=== PATIENT | male | born 1960 | race Caucasian/White ===

== ENCOUNTER 2023-04-27 06:32 | Emergency (ER) | payer OTHER, SELFPAY ==
[2023-04-27 06:39] VITALS: BP 143/104; PULSE 79; RESP 18; TEMP 36.6; O2SAT 99; BMI 29.3
--- NOTE | 2023-04-27 06:58 | ED.GENADULT ---
HPI - General Adult General Chief complaint: Headache/Migraine Stated complaint: cluster headache Time Seen by Provider: 04/27/23 06:33 History of Present Illness HPI narrative: cluster headache, third tonight in front forehead. no meds. last one 6 yr ago. this one started at 0530 . 62-year-old man presenting to the emergency department concern of headache. Has had for exacerbations of what is known to be cluster headache in the last 24 hours. This is much worse than usual. Has been sometime since he had these cluster headaches. Had been given initially on diagnosis nasal Imitrex but these did not seem to help. He notes how he would subsequently go for walks in the cool air in realized that this was helpful and then was prescribed oxygen. He is now out of this oxygen however. This is the only therapy he is particularly interested knowing that it works. He is only been to the emergency department only once before. Not had any fever. There is no trauma. No photophobia but notes that his right eye probably looks abnormal and is typical area for his cluster headache to be centered around. Is also feeling some pain into his upper dentition on that right side but notes that outside of these headaches he does not have any dental problems. Perhaps a little unusual this time has right-sided nose congestion. Related Data Home Medications Medication Instructions Recorded Confirmed aspirin 81 mg tablet,delayed 81 mg PO DAILY 04/27/23 04/27/23 release (Adult Aspirin Regimen) calcium carbonate-vitamin D2 PO 04/27/23 famotidine 20 mg tablet 20 mg PO DAILY 04/27/23 04/27/23 rosuvastatin 10 mg tablet 10 mg PO QPM 04/27/23 04/27/23 Allergies Allergy/AdvReac Type Severity Reaction Status Date / Time celecoxib [From Celebrex] AdvReac Verified 04/27/23 06:42 Penicillins AdvReac Verified 04/27/23 06:42 Review of Systems Status of ROS: Reports: 6 or more systems reviewed and unremarkable except as noted in History and below Exam Narrative: Exam Narrative: Looks clearly uncomfortable. Right eye is full. Is watering. Small lacrimation from nose as well. Right eye is closed. He is not demonstrating photophobia. Pupils are equal and appropriately reactive. Skin is warm and dry without rashes or blisters. Oropharynx is unremarkable with dentition in good repair. Neck without lymphadenopathy. Cranial nerves 2-12 look to be intact. Const: Vital Signs, click to edit/add: Vital Signs - 24 hr 04/27/23 06:39 04/27/23 07:06 04/27/23 08:13 Temperature 97.9 F Pulse Rate [Pulse Oximeter] 79 Respiratory Rate 18 Blood Pressure [Ri ght Upper Arm] 143/104 H Pulse Oximetry 99 100 Oxygen Delivery Me thod Room Air Nasal Cannula Room Air Oxygen Flow Rate 6 04/27/23 08:55 Temperature 97.9 F Pulse Rate [Pulse Oximeter] 79 Respiratory Rate 18 Blood Pressure [Ri ght Upper Arm] 143/104 H Pulse Oximetry Oxygen Delivery Me thod Oxygen Flow Rate Documenting provider has reviewed patient's vital signs: yes Course Vital Signs Vital signs: Initial Vital Signs Temperature 97.9 F 04/27/23 06:39 Temperature Source Temporal Artery Scan 04/27/23 06:39 Pulse Rate 79 04/27/23 06:39 Respiratory Rate 18 04/27/23 06:39 Blood Pressure 143/104 H 04/27/23 06:39 Blood Pressure Mean 117 H 04/27/23 06:39 Blood Pressure Position Sitting 04/27/23 06:39 Pulse Oximetry 99 04/27/23 06:39 Oxygen Delivery Method Room Air 04/27/23 06:39 Vital Signs Temperature 97.9 F 04/27/23 06:39 Pulse Rate 79 04/27/23 06:39 Respiratory Rate 18 04/27/23 06:39 Blood Pressure 143/104 H 04/27/23 06:39 Pulse Oximetry 99 04/27/23 06:39 Oxygen Delivery Method Room Air 04/27/23 06:39 Temperature 97.9 F 04/27/23 08:55 Pulse Rate 79 04/27/23 08:55 Respiratory Rate 18 04/27/23 08:55 Blood Pressure 143/104 H 04/27/23 08:55 Pulse Oximetry 100 04/27/23 07:06 Oxygen Delivery Method Room Air 04/27/23 08:13 Oxygen Flow Rate 6 04/27/23 07:06 Medical Decision Making MDM Narrative Medical decision making narrative: Discussed options for treatment. This does appear to be a clear cluster headache which would benefit from higher flow oxygen. Differential otherwise would include glaucoma, intracranial lesion. Oxygen was applied and did note a fairly rapid relief and ultimately full resolution of his headache. He anticipates reaching out to his primary per conversation with his insurance coverage to obtain refill of oxygen. He declined offers of refill/prescription from this emergency department. See patient discharge plan Discharge Plan Discharge Clinical Impression: Cluster headache Patient Disposition: Home, Self-Care Condition: Improved Additional Instructions: Very happy you are feeling better. Let us know if we need to help you get that oxygen replaced. I think it would be a good idea otherwise to check in with primary maybe Neurology again. Prescriptions: No Action famotidine 20 mg tablet 20 mg PO DAILY rosuvastatin 10 mg tablet 10 mg PO QPM calcium carbonate-vitamin D2 [Calcium with Vitamin D] PO aspirin [Adult Aspirin Regimen] 81 mg tablet,delayed release (DR/EC) 81 mg PO DAILY Follow Up/Referrals: Lalo Bass MD [Primary Care Provider] - Stand Alone Forms: [employer] Info Instructions
[2023-04-27 07:06] VITALS: O2SAT 100
--- NOTE | 2023-04-27 07:12 | ED.NURSE ---
Patient placed on 6L NC.
[2023-04-27 08:55] VITALS: BP 143/104; PULSE 79; RESP 18; TEMP 36.6
== END 2023-04-27 08:55 | disposition home or self-care (01) ==
LOC: ED 08:40
PROVIDERS: Emergency Provider Family Medicine; PCP Family Medicine
DX: G44.009 Cluster headache syndrome, unspecified, not intractable (principal)
CPT/HCPCS: 99283; 99284

== ENCOUNTER 2023-08-06 09:15 | Outpatient (RCR) | payer OTHER, SELFPAY ==
--- NOTE | 2023-07-02 10:27 | PT.OPEX ---
PT [place] Outpatient Eval PT [facility] Outpatient Eval Start: 06/16/23 07:51 Freq: Status: Active Protocol: Document 06/16/23 09:36 HN (Rec: 06/16/23 14:18 HN [id number]) E-signed By Niki Rome DPT Physical Therapy Outpatient Evaluation Insurance Information Insurance Name [facility] Insurance Information/Comments [facility] Medical Diagnosis Other bursitis of hip, left hip M70. 7 Treating Diagnosis M76. 0: Gluteal tendinitis. M25. 552: Pain in left hip. Referring MD Mj Garcia MD Subjective Subjective Patient is a 63 year old male with with left hip pain with insidious onset x6 months ago. Patient reports some history of sciatica, does resemble that from time to time. Pt reports hip prevents from falling sleep a few times a week Pain characteristics: Reports sometimes feels fatigued, achey Aggravating factors: walking short distances, standing >5 minutes, sitting, sleep on left side Easing Factors: improves with rest Prior level of function: unlimited with al ADLs and IADLs, physical actitvity Current limitations: walking short distances, standing >5 minutes, sitting, sleep on left side Red flags: denies hx of cancer , recent infection, numbness/ tingling, bowel/bladder changes Imaging: AP Pelvis and Cross- Table Lateral views of the left hip were obtained today. These show the intertrochanteric fracture is healed anatomically. The dynamic hip screw and derotational cannulated screw remained well placed, not prominent on the lateral cortex. There is no evidence for osteonecrosis or osteoarthritis. 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 The dynamic hip screw and derotational cannulated screw remained well placed, not prominent on the lateral cortex. There is no evidence for osteonecrosis or osteoarthritis. PMH: Osteoporosis managed with medication, ball assembler recently diagnosed pt with celiac Weight Bearing Status Full Weight Bearing Therapy Limitations/Systems Review Not Limited Objective Other/Pertinent Objective Lumbar range of motion: WNL with no reproduction of symptoms Hip range of motion: WNL with no reproduction of symptoms Manual muscle testing: Hip flexion: 5/5 L , 5/5 R Hip abduction: 4/5 L , mild reproduction of symptoms 5/5 R Hip extension: 4/5 L , 5/5 R Knee extension: 5/5 L , 5/5 R Knee flexion: 5/5 L , 5/5 R Ankle DF: 5/5 L , 5/5 R Ankle PF: 5/5 L , 5/5 R Heel and toe walking: normal Special tests: Straight leg raise: negative bilaterally BALA: positive on L FADIR: negative SCOUR: negative [place] cluster: not tested Repeated extension: not tested Repeated flexion: not tested Palpation: mild reproduction of symptoms with palpation posterior to greater trochanter Functional Test Performed & Score LEFS: 47/80 = 58% Assessment Assessment/Impression Patient is a 63 year old with complaints of insidious onset left hip pain. Patient demonstrates impaired left hip strength, pain along L greater troachanter, pain with standing, walking, lying on L side with L glute medius tendinopathy. The impairments impact the patients prolonged standing, sitting, walking, ascending/descending stairs, and falling asleep. Patient will benefit from skilled physical therapy to address the impairments and activity limitations listed above. Prognostic factors include comorbidities and patient motivation. Primary Functional Limitations prolonged standing, sitting, walking, ascending/descending stairs, and falling asleep. Plan of Care Rehabilitation Potential Good Physical Therapy Goals FPC goals 1. Patient will demonstrate LEFS score of 60/90 or greater to demonstrate decreased pain and disability related to L hip pain. 2. Patient will demonstrate 5/5 R glute med/max strength in order to improved tolerance with standing/walking. 3. Patient will tolerate ambulating >45 minutes with no increase in pain 4. Patient will report <3/10 pain at worst in order to demonstrate decreased pain and disability related to symptoms. 5. Patient will reports 1 or few sleep disturbances ( falling or staying asleep) due to L hip pain in order to return to prior level of function. Coordination/Communication With Referral Source Treatment Plan/Direct Interventions Manual Therapy,Neuromuscular Re-ed,Self-Care/Home Management,Therapeutic Activities,Therapeutic Exercises Frequency/Duration 1x/week 10-12 weeks Patient Will Be Discharged From Therapy Completion of LTG(s),Skills Plateau,Independent w/HEP Evaluation Billing Untimed Code Treatment Minutes 14 Complexity Low Certification Information Physician Comment/Change : Physician NPI Number #
== END 2023-08-06 12:01 | disposition home or self-care (01) ==
PROVIDERS: PCP Family Medicine; Visit Provider Orthopaedic Surgery
DX: M70.72 Other bursitis of hip, left hip (principal); M76.00 Gluteal tendinitis, unspecified hip; M25.552 Pain in left hip; Z51.89 Encounter for other specified aftercare
CPT/HCPCS: 97110; 97140; 97161

== ENCOUNTER 2024-11-26 07:40 | Emergency (ER) | payer OTHER, SELFPAY ==
--- OUTSIDE RECORDS SUMMARY | 2008-07-16 19:00 | XMS_ITS | Continuity of Care Document ---
Author Organization [facility] Address [address], [place] [address] Phone Care Team Providers Care Pressure Dispatcher Name Role Phone Unavailable Unavailable Unavailable Advance Directives Directive Yes / No Effective Date File Name No Information Encounters Encounter Description Practice Location Reason(s) For Visit Diagnoses Date Provider Providers Copied on Encounter [facility], [address] [place] [address], [id number], [place] tel:[phone] [facility] [place] No Information No Information Family History Family Member Type Diagnosis Age At Onset No Information Payers Payer name Insurance type Covered democrat ID Authoriza tion(s) No Information Social History Type Description Quantity Date Captured Comments Sex Male Smoking Status No Information Chief Complaint And Reason For Visit No Information Reason For Referral Reason For Referral No Information History Of Present Illness Encounter Date Complaint History Of Prese nt Illness No Information Functional Status Date Functional Assessmen t No Information Instructions Date Instruction Additional Infor mation No Information Assessments Type Assessment Date No Information Patient Care Teams Name Effective Dates (start - stop) Status Members No Information
--- OUTSIDE RECORDS SUMMARY | 2008-07-16 19:00 | XMS_ITS | Continuity of Care Document ---
Author Organization [facility] Address [address], [place] [address] Phone Care Team Providers Care Federal [employer] Marshal Name Role Phone Unavailable Unavailable Unavailable Advance Directives Directive Yes / No Effective Date File Name No Information Encounters Encounter Description Practice Location Reason(s) For Visit Diagnoses Date Provider Providers Copied on Encounter [facility], [address] [place] [address], [id number], [place] tel:[phone] [facility] [place] No Information No Information Family History Family Member Type Diagnosis Age At Onset No Information Payers Payer name Insurance type Covered libertarian ID Authoriza tion(s) No Information Social History [...]
--- OUTSIDE RECORDS SUMMARY | 2024-11-26 07:43 | XMS_ITS | Data Portability ---
Author Organization [place] - [facility], [facility] Address [address] [place] [address] Assessment Encounter Date Assessment Date Assessment LastModified by Organization Details LastModified Time 06/15/2024 06/15/2024 Of note a total of 20 minutes was spent: preparing to see the patient by reviewing records, images, and laboratory data; obtaining/review ing separately obtained history; performing physical examination, counseling and educating patient/family/c aregiver; ordering appropriate medications, labs, imaging or procedures; documenting the clinical encounter; and coordination of care. [email or web address] Not available 06/15/2024 14:19:20 07/29/2024 07/29/2024 64M with newly-diagnosed high-risk prostate cancer. I had a long discussion with the patient about the natural history of high-risk prostate cancer. We talked about the need for staging imaging to evaluate for metastasis. His PSMA-PET shows possible right iliac LN involvement; this is possibly metastatic but not definite. I would recommend definitive local treatment with either radical prostatectomy or radiation therapy + ADT.. We talked about treatment options for localized prostate cancer including surgery and radiation. I explained that surgery and radiation have similar oncologic outcomes but differences in short- and long-term side effects. We talked at length about radical prostatectomy and pelvic lymphadenectomy, including expected post-operative course and the risk of urinary and sexual side effects. I explained that high-risk localized prostate cancers have increased risk of recurrence after treatment and many cases require multimodal therapy beyond surgery or radiation alone. I do think that he is a good candidate for robotic prostatectomy. He would like to move forward. - RALP + PLND (extended) darian Not available 07/29/2024 15:22:35 10/28/2024 10/28/2024 64M s/p RALP + PLND on 10/19/24 for pT2N0 Sakshi 4+3=7 prostate cancer (-SMS, -SVI, 0/12 LN). - Park removed in clinic today - Pathology reviewed with patient by Dr Weldon today. - Kegel teaching and handout provided - Finish course of prophylactic antibiotics as prescribed - Continue lifting restrictions x6 weeks post op - Follow up with Dr. Weldon with PSA in 6-8 weeks [email or web address] Not available 10/28/2024 09:59:15 Plan of Treatment Reminders Order Date Submit Date Provider Last Modified By Organization Details Last Modified Time Details Appointments ESTABLISH ED 10 2024 12:50P M Ze guevara MD, PHD Not available Not available Not available Lab None recorded. Referral None recorded. Procedures None recorded. Surgeries None recorded. Imaging PET, skull base to mid-thigh [address] [facility] [address], [address], [place], [address], 07/08/2024 13:10:57 Medication Orders Posluma 296 MBq/mL to 5,846 MBq/mL intraveno us solution 2024 024 [id number], [address] [place], [place], [phone], 07/13/2024 15:15:03 ceftriaxo ne 1 gram solution for injection 2023 024 [email or web address] [id number], [address] [place], [place], [phone], 06/01/2024 14:23:54 Patient TargetsNo targets recorded. Patient InstructionsNo instructions recorded. Reason for Referral None Reported. Results Created Date Observation Date Name Description Value Unit Range Abnormal Flag Note LastModifiedBy Organization Detail LastModifiedTime 05/02/20 24 05/02/2024 PSA, serum or plasm a PSA 8.1 ng/mL 0-4.0 NG/mL Not Available [facility] [address], [place], [address], 05/02/2024 15:12:11 06/16/20 24 06/01/2024 US, prost ate No observ ation record ed. [email or web address] Not Available 06/16 13:42:25 07/08/19 25 07/05/2024 PET, skull base to mid-t high No observ ation record ed. [email or web address] [facility] [address], [place], [address], 07/17/2024 08:22:49 07/20/19 25 07/08/[address], verte x to mid thigh , prost ate psma [facility] Lina t Name: JANES Jimenez 37 Patien t : 1959 Referr ing Physic luann: WALTER MATHEWS Exam Date: 2023 Exam Descri ption: PET w CT, vertex to mid thigh, prosta te PSMA HISTOR Y: Prosta te cancer , recent ly diagno sed. PSA 8.1. TECHNI GABRIELLA FACTOR S: Images were acquir ed from the vertex of the skull to mid thighs 57 minute s post inject ion of 7.94 mCi F-18 Poslum a. Axial, ayala l and sagitt al PET recons tructi ons with and withou t attenu ation correc tion were interp reted. Fany mendez g CT images were acquir ed and review ed alongs krystian the PET images . The low dose unenha nced CT images were used for attenu ation correc tion and anatom ic correl ation only. COMPAR MARIE: None. FINDIN GS: PET Findin gs: Abnorm al tracer uptake in the right base to mid periph eral prosta te with max SUV 4.1, likely consis tent with the patien t's known prosta te cancer . Tracer avid right common iliac 1.0 cm lymph node with max SUV 3.1, concer williams for tara metast asis. No additi onal site concer williams for tracer avid tara or distan t metast atic diseas e. Tracer distri bution is otherw ise physio logic. Non-PE T Findin gs: Cerebr al volume is age approp riate. Aortic calcif icatio ns. Heart size is normal . Mild scatte red subseg mental atelec tasis in the lungs. Kidney s are symmet benito in size. Renal cysts. No hydrou retero nephro sis. Proxim al left femora l hardwa re. Degene rative change s of the spine. CONCLU GUANAKITO: 1. Abnorm al tracer uptake in the right base to mid periph eral prosta te, likely consis tent with the patien t's known prosta te cancer . 2. Tracer avid right common iliac 1.0 cm lymph node, concer williams for tara metast asis. 3. No additi onal site concer williams for tracer avid tara or distan t metast atic diseas e. Thank you for the opport trimont to provid e your interp retati on. Glenys jennings MD A: MS 2024 5:44 AM EST [email or web address] [facility] [place] [address], [place], [address], 07/22/2024 08:38:17 Result Notes None recorded. Problems Name Problem SNOMED Code Status Onset Date Resolution Date Notes Provider Name and Address Organization Details Recorded Time Malignant neoplasm of prostate 139218310 Active 025 Ze guevara MD, PHD [address], [address], [facility] 5 15:15:56 Problem Notes None recorded. Procedures Surgical History Date Name Laterality Status Provider Name and Address Organization Details Recorded Time 10/29/19 25 Park Catheter Removal completed Donal Zuñiga [facility] 10/28/2024 09:35:39 07/05/20 [address] PSMA-[address] completed Марина Curtis [facility] 07/13/2024 15:13:47 06/01/20 24 Prostate Biopsy Procedure completed Walter Mathews MD [address] [facility] [address] [address], [place], [address], [place] [facility] 06/02/2024 02:36:37 06/01/20 24 Rocephin/Ceftriax one completed Padmini Cueva [facility] 06/01/2024 14:22:57 05/02/20 24 COMPLEX VISIT completed Walter Mathews MD [address] [facility] [address] [address], [place], [address], [facility] 05/02/2024 09:29:16 05/02/20 24 Blood Draw/SOLE EDGE INKER MACHINE/PSA RESULTS completed Landen Bruno [facility] 05/02/2024 14:56:44 07/06/19 21 Colonoscopy completed Padmini Lora [facility] 01/22/2023 16:21:25 procedure on hip completed Padmini Lora [facility] 01/22/2023 16:20:28 tonsillectomy completed Padmini Lora [facility] 01/22/2023 16:20:48 kidney biopsy completed Padmini Lora [facility] 01/22/2023 16:20:58 cardiac ablation using fluoroscopy guidance completed Padmini Lora [facility] 01/22/2023 16:21:11 Imaging Results Imaging Date Name Status LastModified by Organiz ation Details LastModified Time 06/01/2024 US, prostate completed [email or web address] Information not available 06/16/2024 13:42:25 07/05/2024 PET, skull base to mid-thigh completed [facility] [address], [place], [address], 07/17/2024 08:22:49 07/08/[address], vertex to mid thigh, prostate psma [place] [address] [facility] [address], [place], [address], 07/22/2024 08:38:17 Procedure Notes None recorded. Medical Equipment None Reported. Allergies Allergen ID Allergen Name Allergen Category Reaction Reaction Severity Criticality Documentation Date Start Date Code Code System Note Provider Name and Address Organization Details Recorded Time 588250 Product containin g penicilli n (product) medicatio n rash mild Not available 01/22/2023 94488 8001 SNOMED Padmini Salvatorequis t null, [facility] 3 16:19:03 563512 Celebrex medicatio n Not available Not available Not available 01/22/2023 17122 7 RxNorm Padmini Chasequis t null, [facility] 3 16:19:08 Medications Name Sig Start Date Stop Date Status Note LastModified by Organization Details LastModified Time alendronate 70 mg tablet active Not Available Not Available Not Available ciprofloxac in 500 mg tablet TAKE 1 TABLET BY MOUTH EVERY 12 HOURS FOR 3 DAYS 2024 active Not Available Not Available Not Avai lable ceftriaxone 1 gram solution for injection Take 1 g by injection route. 2023 active Not Available Not Available Not Avai lable famotidine 20 mg tablet TAKE 2 TABLETS BY MOUTH TWICE DAILY FOR 12 WEEKS THEN TAKE 1 TABLET BY MOUTH TWICE DAILY active Not Available Not Available No t Available lansoprazol e 30 mg capsule,del ayed release TAKE 1 CAPSULE BY MOUTH ONCE DAILY BEFORE A MEAL. 01/22 completed Not Available Not Available Not Available metoprolol succinate ER 25 mg tablet,exte nded release 24 hr TAKE 1 TABLET BY MOUTH ONCE DAILY. 01/22 completed Not Available Not Available Not Available rosuvastati n 10 mg tablet active Not Available Not Available Not Available Posluma 296 MBq/mL to 5,846 MBq/mL intravenous solution Inject 8 mCi by intraveno us route. 2024 active Not Available Not Available Not Avai lable Vitals Date Recorded Body height Body mass index (BMI) Body weight Provider Name and Address Organization Details Last Updated DateTime 07/29/2024 187.96 cm 30.3 kg/m2 968746.8 g Ze childs MD, PHD [address] [facility] [address], [place], [address], [facility] 07/29/2024 14:33:21 Date Recorded Body height Body mass index (BMI) Body weight Provider Name and Address Organization Details Last Updated DateTime 10/28/2024 187.96 cm 30.3 kg/m2 940845.8 g Donal Zuñiga [facility] 10/28/2024 09:34:24 Social History Question Answer Notes LastModified by Organizat [employer] Details LastModified Time Tobacco Smoking Status Never Smoker Padmini Lora gloria, [facility] 01/22/2023 16:20:09 Do You Have An Advance Directive? No Information not available 07/29/2024 What Is Your Level Of Caffeine Consumption? Occasional Information not available 01/22/2023 Do You Have A Medical Power Of Clinical Research Director? No Information not available 07/29/2024 What Was The Date Of Your Most Recent Tobacco Screening? 10/28/2024 [email or web address] Information not available 10/28/2024 Has Tobacco Cessation Counseling Been Provided? No Information not available 01/22/2023 Sex: Male Functional Status Question Answer Note LastModified by Organizat [employer] Details LastModified Time Do you use any illicit or recreational drugs? No Information not available 01/22/2023 Do you or have you ever used any other forms of tobacco or nicotine? No Information not available 01/22/2023 What is your level of alcohol consumption? Occasional Information not available 01/22/2023 Mental Status None recorded. Family History Relationship Description Onset Age of this Age Resolved Age Notes LastModified by Organization Details LastModified Time Father No current problems or disability [email or web address] Not available 16:19:51 Mother No current problems or disability [email or web address] Not available 16:19:51 Medical History Condition Response Diabetes N Sexually Transmitted Infection N Bleeding Disorder N Other Y High Blood Pressure N Kidney Stones N High Cholesterol Y GERD/Acid Reflux Y Heart Disease N Cancer Y Lung Disease N Depression N Immunizations Vaccine Type Date Status Note Provider Nam e and Address Organization Details Recorded Time zoster recombinant 3 completed Landen castro [facility] 05/02/2024 14:56:21 COVID-19, mRNA, LNP-S, PF, 50 mcg/0.5 mL 4 completed Landen castro [facility] 05/02/2024 14:56:21 COVID-19, mRNA, LNP-S, PF, 50 mcg/0.5 mL 3 completed Landen Kiana null, [facility] 05/02/2024 14:56:21 Influenza, split virus, trivalent, PF 4 completed Landen Kiana null, [facility] 05/02/2024 14:56:21 Influenza, split virus, quadrivalent, PF 3 completed Landen Kiana null, [facility] 05/02/2024 14:56:21 Influenza, MDCK, quadrivalent, PF 9 completed Padmini Stromquist null, [facility] 01/22/2023 16:18:53 Influenza, MDCK, quadrivalent, PF 7 completed Padmini Stromquist null, [facility] 01/22/2023 16:18:53 zoster recombinant 3 completed Padmini Stromquist null, [facility] 01/22/2023 16:18:53 COVID-19, mRNA, LNP-S, PF, 100 mcg/0.5mL dose or 50 mcg/0.25mL dose 1 completed Padmini Stromquist null, [facility] 01/22/2023 16:18:53 COVID-19, mRNA, LNP-S, PF, 100 mcg/0.5mL dose or 50 mcg/0.25mL dose 1 completed Padmini Stromquist null, [facility] 01/22/2023 16:18:53 COVID-19, mRNA, LNP-S, PF, 100 mcg/0.5mL dose or 50 mcg/0.25mL dose 1 completed Padmini Stromquist null, [facility] 01/22/2023 16:18:53 COVID-19, mRNA, LNP-S, PF, 30 mcg/0.3 mL dose, sherry-sucrose 2 completed Padmini Stromquist null, [facility] 01/22/2023 16:18:53 COVID-19, mRNA, LNP-S, bivalent, PF, 30 mcg/0.3 mL dose 3 completed Padmini Stromquist null, [facility] 01/22/2023 16:18:53 Tdap 8 completed [facility]romquist [facility], [facility] 01/22/2023 16:18:53 Tdap 7 completed Padmini Stromquist null, [facility] 01/22/2023 16:18:53 Influenza, split virus, trivalent, preservative 2 completed Padmini Stromquist null, [facility] 01/22/2023 16:18:53 Influenza, split virus, trivalent, preservative 1 completed Padmini Stromquist null, [facility] 01/22/2023 16:18:53 Influenza, split virus, trivalent, preservative 0 completed Padmini Stromquist null, [facility] 01/22/2023 16:18:53 Influenza, split virus, trivalent, preservative 3 completed Padmini Stromquist null, [facility] 01/22/2023 16:18:53 Influenza, split virus, trivalent, preservative 8 completed Padmini Stromquist null, [facility] 01/22/2023 16:18:53 Influenza, split virus, trivalent, preservative 1 completed Padmini Stromquist null, [facility] 01/22/2023 16:18:53 Influenza, split virus, quadrivalent, PF 6 completed Padmini Stromquist null, [facility] 01/22/2023 16:18:53 Influenza, split virus, quadrivalent, PF 4 completed Padmini Stromquist null, [facility] 01/22/2023 16:18:53 Influenza, split virus, quadrivalent, PF 0 completed Padmini Stromquist null, [facility] 01/22/2023 16:18:53 Influenza, split virus, quadrivalent, PF 8 completed Padmini Stromquist null, [facility] 01/22/2023 16:18:53 Influenza, split virus, quadrivalent, PF 5 completed Padmini Lora null, [place] [facility] 01/22/2023 16:18:53 Influenza, split virus, quadrivalent, PF 2 completed Padmini Lora null, [place] [facility] 01/22/2023 16:18:53 Past Encounters Encounter ID Performer Location Encounter Start Date Encounter Closed Date Diagnosis/Indication Diagnosis SNOMED-CT Code Diagnosis ICD10 Code Diagnosis Note [id number] Walter Mathews MD [facility] [address] [place] [address] 01/22/2023 15:53:37 01/28/2023 12:35:14 Prostate specific antigen above reference range 649196638 R97.20 We discussed the significan ce of an elevated PSA and its utility in screening for prostate cancer. We discussed that while the PSA may be elevated in some men due to benign causes such as trauma, recent sexual intercours e, urinary tract infections , or recent instrument ation, it may also be indicative of underlying prostate cancer. We discussed that a PSA test alone is not sufficient to determine if prostate cancer is present and further testing is warranted. We then discussed the available options for further evaluation s. One option would be to proceed with transrecta l ultrasound with prostate needle biopsy. This allows for sampling of the prostate in areas where cancer is likely to be found. This will allow for detection of underlying prostate cancer if it is present. We discussed the limitation s of this including under sampling which may lead to under diagnosis. We also discussed the risks most notably bleeding to a degree enough to require interventi on (1-2.5%) and infection which may result in hospitaliz ation (1-3%). We also discussed expected after effects of biopsy including temporary hematuria, blood per rectum, and hematosper zarina which are considered normal after this procedure. A second option we discussed would be to proceed first with an MRI of the prostate. This would allow for detection of underlying lesions of the prostate which are suspicious for cancer. This informatio n could then be utilized for ultrasound -MRI fusion biopsies which may result in improved detection of underlying prostate cancer and also facilitate residential surveillan ce for men in which low risk prostate cancers are identified . We then discussed the role of adjunctive testing in the form (4k score or ExoDx) to help better inform risk profile. While this does not tell a man whether he has prostate cancer this may be helpful in making a decision about whether to proceed with a prostate biopsy. He would like to proceed with MRI of the prostate followed by fusion biopsy. - Will obtain Prostate MRI Prostate nodule 86462408 N40.2 - As above [id number] Walter Mathews MD [facility] [address] [place] [address] 05/02/2024 14:41:14 05/03/2024 08:47:47 Prostate specific antigen above reference range 965737735 R97.20 We discussed the significan ce of an elevated PSA and its utility in screening for prostate cancer. We discussed that while the PSA may be elevated in some men due to benign causes such as trauma, recent sexual intercours e, urinary tract infections , or recent instrument ation, it may also be indicative of underlying prostate cancer. We discussed that a PSA test alone is not sufficient to determine if prostate cancer is present and further testing is warranted. We then discussed the available options for further evaluation s.One option would be to proceed with transrecta l ultrasound with prostate needle biopsy. This allows for sampling of the prostate in areas where cancer is likely to be found. This will allow for detection of underlying prostate cancer if it is present. We discussed the limitation s of this including under sampling which may lead to under diagnosis. We also discussed the risks most notably bleeding to a degree enough to require interventi on (1-2.5%) and infection which may result in hospitaliz ation (1-3%). We also discussed expected after effects of biopsy including temporary hematuria, blood per rectum, and hematosper zarina which are considered normal after this procedure. A second option we discussed would be to proceed first with an MRI of the prostate. This would allow for detection of underlying lesions of the prostate which are suspicious for cancer. This informatio n could then be utilized for ultrasound -MRI fusion biopsies which may result in improved detection of underlying prostate cancer and also facilitate terminal superintendent surveillan ce for men in which low risk prostate cancers are identified .We then discussed the role of adjunctive testing in the form (4k score or ExoDx) to help better inform risk profile. While this does not tell a man whether he has prostate cancer this may be helpful in making a decision about whether to proceed with a prostate biopsy.He would like to proceed with MRI of the prostate followed by fusion biopsy. - Prostate MRI: 57 cc, no lesions - PSA now 8.1 ng/mL, willing to proceed with biopsy at this time. Prostate nodule [id number] 01 90920 N40.2 - As above [id number] Walter Mathews MD [address] [place] [address] 06/01/2024 13:37:33 06/06/2024 08:51:04 Prostate specific antigen above reference range 268523308 R97.20 - Now s/p TRUS biopsy- Phone visit in 2 weeks for pathology discussion - We reviewed the limitation s of this including under sampling which may lead to under diagnosis. We also reviewed the risks most notably bleeding to a degree enough to require interventi on (1-2.5%) and infection which may result in hospitaliz ation (1-3%). We also discussed expected after effects of biopsy including temporary hematuria, blood per rectum, and hematosper zarina which are considered normal after this procedure. - Prostate MRI: 57 cc, no lesions Prostate nodule [id number] 38003 N40.2 - As above [id number] Walter Mathews MD [address] [place] [address] 06/15/2024 11:52:41 06/20/2024 13:33:46 Prostate specific antigen above reference range 192856903 R97.20 - Now s/p TRUS biopsy- Prostate MRI: 57 cc, no lesions Prostate nodule 69238808 60299 N40.2 - As above Malignant neoplasm of prostate 267733448 C61 - [place]am grade group 3- PSA 8.1 ng/mL- Will obtain staging PSMA [id number] Walter Mathews MD [facility] [address] [facility] [place] [address] 07/05/2024 10:22:09 07/14/2024 09:26:04 Malignant neoplasm of prostate 848080907 C61 - Gotham grade group 3- PSA 8.1 ng/mL- Will obtain staging PSMA [id number] Ze becerril MD, PHD [address] [place] [address] 07/29/2024 14:19:57 08/03/2024 09:42:54 Malignant neoplasm of prostate 115062732 C61 [id number] [facility] [address] [place] [address] 10/28/2024 09:25:35 11/04/2024 09:49:12 Malignant neoplasm of prostate 549485135 C61 Health Concerns Section Related Observation LastModified by Organization Detai ls LastModified Time None Recorded Concern Status LastModified by Organization Details LastModified Time None Recorded Advance Directives Directive N: Payers Insurance Date Sequence Insurance Name Policy Number Policy Hayden Covered Member ID Hayden Member ID Guarantor Name 06/01/2024 1 [facility] [id number] Janes Klein [id number] Janes Klein 11/04/2024 1 [facility] [id number] Janes Klein [id number] Janes Klein Notes Date Note Type Note Provider Name and Address Organization Details Recorded Time 06/01/2024 text/html Mr. Janes earl is a pleasant 63-year-old gentleman who is referred to me by his primary care physician, Lalo Bass MD , regarding elevated PSA. Patient has undergone PSA screening as part of his annual well visit and has been noted to be elevated. Voiding symptoms: occasional nocturia but not bothersome Family history of prostate cancer: None [facility] prostate cancer risk assessment tool: 77% chance of negative biopsy, 18% risk of low-grade prostate cancer, 5% risk of high-grade prostate cancer. Asymmetry of the right lateral lobe. PSA most recently 4.33 ng/mL 05/02/2024:Here for follow up elevated PSA and abnormal COREY. Last year February 2023 MRI negative for concerning lesions with a gland volume of 57cc. Biopsy recommended but patient declined. Returns today as his annual PSA is now up to 5.76 ng/mL. His PSA in office today was 8.1 ng/mL. He is an avid cyclist but has not biked in the last month. 06/01/2024:Here for follow up elevated PSA and abnormal COREY. Here for prostate biopsy, all questions answered prior to onset of procedure. Walter Mathews MD [address] [facility],[address], [place], [address], [facility] 06/02/2024 02:36:52 06/15/2024 text/html Mr. Janes earl is a pleasant 63-year-old gentleman who is referred to me by his primary care physician, Lalo Bass MD , regarding elevated PSA. Patient has undergone PSA screening as part of his annual well visit and has been noted to be elevated. Voiding symptoms: occasional nocturia but not bothersome Family history of prostate cancer: None [facility] prostate cancer risk assessment tool: 77% chance of negative biopsy, 18% risk of low-grade prostate cancer, 5% risk of high-grade prostate cancer. Asymmetry of the right lateral lobe. PSA most recently 4.33 ng/mL 05/02/2024:Here for follow up elevated PSA and abnormal COREY. Last year February 2023 MRI negative for concerning lesions with a gland volume of 57cc. Biopsy recommended but patient declined. Returns today as his annual PSA is now up to 5.76 ng/mL. His PSA in office today was 8.1 ng/mL. He is an avid cyclist but has not biked in the last month. 06/01/2024:Here for follow up elevated PSA and abnormal COREY. Here for prostate biopsy, all questions answered prior to onset of procedure. 06/15/2024:S/p prostate biopsy, no immediate issues. Pathology: Gotham 4+3 Prior to conducting our telephone visit, the patient was apprised of the risks, benefits and alternatives to telephone visits including but not limited to poor audio quality, interrupted visits due to technological limitations, delays in medical evaluation and treatment due to deficiencies or failures of equipment, failure of security protocols resulting in a breach of privacy of personal medical information and a lack of access to complete medical records resulting in not fully informed. It was not possible for the patient to sign the privacy regulations, HIPAA release and assignment of benefits forms. The patient was given the opportunity to ask questions about these policies and gave verbal acknowledgement and approval of these policies as well as to hold this meeting by telephone. Lastly, the patient agreed to allowing their medication history to be pulled from a national pharmacy database to facilitate and coordinate their care. Walter Mathews MD [address] [place] [address],[address], [place], [address], [facility] 06/15/2024 14:19:32 07/05/2024 text/html Name{{ JANES KLEIN#}}MRN{{PATIE NTMRN [id number]#}}{ {PATIENTDOB [birth year] 60#}}HT{{ 6FT 2IN#}}WT{{ 236#}}Redd e of Exam{{DATE }}Time of Exam{{ 10AM#}}minRef erring Physician{{ WALTER MATHEWS#}}Prostate Ca Diagnosis{{DATE 06/05}}Recent PSA{{ 8.1#}}Prostate ctomy{{Y N*}}Rad TX{{Y N*}}Chemo TX{{Y N*}}Hormone TX{{Y N*}}Biopsy{{Y* N}}DATE 06/15/24Recent CT Scan{{Y N*}}Recent MRI{{Y N*}}Recent PET/CT{{Y N*}}Bone Scan{{Y N*}}Surgerie s{{ N#}}Any recent vaccination{{Y N}} Approx Date and type{{}} Intitial Treatment Strategy:Initial Stating Newly Confirmed{{Y* N}} Subsequent Treatment Strategy:Restaging{{ Y N}} Technologist Notes:Agent{{Posluma * Illuccix Pylarify} } Dose{{ 7.94#}}mCi Injection Time{{ 1012#}} Injection Site{{ RAC#}} Injected by{{Wood Gentile* Alisa Rios}} Scanned by{{Wood Brownwcett* Alisa Diane EMKineticsraj}} Uptake time{{ 57#}}min Minutes/bed{{ 3#}} Марина castro [facility] 07/13/2024 15:15:07 07/29/2024 text/html 64M with prostat e cancer. 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 Overall doing well since surgery. He has increased activity to a near normal level. He reports minimal pain and denies leg swelling, problems with incisions, or fevers. Taking cipro as prescribed. BI AGUILA PA-C [address] [place] [address],[address], [place], [address], [facility] 10/28/2024 10:15:07
--- OUTSIDE RECORDS SUMMARY | 2024-11-26 07:43 | XMS_ITS | Data Portability ---
Author Organization [place] [facility], [facility] Address [address] [facility] [place] [address] Assessment Encounter Date Assessment Date Assessment LastModified [...] PET, skull base to mid-thigh 2023 024 [facility], [address], [address], [place], [address], 07/08/2024 13:10:57 Medication Orders Posluma 296 MBq/mL to 5,846 MBq/mL intraveno us solution 2024 024 [id number], [address] [place], [place], [phone], 07/13/2024 15:15:03 ceftriaxo ne 1 gram solution for injection 2023 024 [email or web address] [id number], [address] [place], [place], [phone], 06/01/2024 14:23:54 Patient TargetsNo targets recorded. Patient InstructionsNo instructions recorded. Reason for Referral None Reported. Results Created Date Observation Date Name Description Value Unit Range Abnormal Flag Note LastModifiedBy Organization Detail LastModifiedTime 05/02/20 24 05/02/2024 PSA, serum or plasm a PSA 8.1 ng/mL 0-4.0 NG/mL Not Available [facility] [address], [place], [address], 05/02/2024 15:12:11 06/16/20 24 06/01/2024 US, prost ate No observ ation record ed. [email or web address] Not Available 06/16 13:42:25 07/08/19 25 07/05/2024 PET, skull base to mid-t high No observ ation record ed. 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 Thank you for the opport [place] to provid e your interp retati on. Glenys jennings MD A: MS 2024 5:44 AM EST [email or web address] [facility] [address], [place], [address], 07/22/2024 08:38:17 Result Notes None recorded. Problems Name Problem SNOMED Code Status Onset Date Resolution Date Notes Provider Name and Address Organization Details Recorded Time Malignant neoplasm of prostate 405629532 Active 025 Ze guevara MD, PHD [address] [facility],[address], [place], [address], [facility] 5 15:15:56 Problem Notes None recorded. Procedures Surgical History Date Name Laterality Status Provider Name and Address Organization Details Recorded Time 10/29/19 25 Park Catheter Removal completed Donal Zuñiga [facility] 10/28/2024 09:35:39 07/05/20 24 PSMA-[address] completed Марина Curtis [facility] 07/13/2024 15:13:47 06/01/20 24 Prostate Biopsy Procedure completed Walter Mathews MD [address] [facility],[address], [place], [address], [place] [facility] 06/02/2024 02:36:37 06/01/20 24 Rocephin/Ceftriax one completed Padmini Cueva [facility] 06/01/2024 14:22:57 05/02/20 24 COMPLEX VISIT completed Walter Mathews MD [address] [facility],[address], [place], [address], [facility] 05/02/2024 09:29:16 05/02/20 24 Blood Draw/GLUE COOK/PSA RESULTS completed Landen Bruno [facility] 05/02/2024 14:56:44 07/06/19 21 Colonoscopy completed Padmini Lora [facility] 01/22/2023 16:21:25 procedure on hip completed Padmini Lora [facility] 01/22/2023 16:20:28 tonsillectomy completed Padmini Lora [facility] 01/22/2023 16:20:48 kidney biopsy completed Padmini Lora [facility] 01/22/2023 16:20:58 cardiac ablation using fluoroscopy guidance completed Padmini Lora [facility] 01/22/2023 16:21:11 Imaging Results Imaging Date Name Status LastModified by Organiz ation Details LastModified Time 06/01/2024 US, prostate completed [email or web address] Information not available 06/16/2024 13:42:25 07/05/2024 PET, skull base to mid-thigh completed 02 [facility] [address] [facility] [address], [place], [address], 07/17/2024 08:22:49 07/08/[address], vertex to mid thigh, prostate psma [place] [id number] [facility] [address] [facility] [address], [place], [address], 07/22/2024 08:38:17 Procedure Notes None recorded. Medical Equipment None Reported. Allergies Allergen ID Allergen Name Allergen Category Reaction Reaction Severity Criticality Documentation Date Start Date Code Code System Note Provider Name and Address Organization Details Recorded Time 300563 Product containin g penicilli n (product) medicatio n rash mild Not available 01/22/2023 01024 8001 SNOMED Padmini Salvatorequis t null, [facility] 3 16:19:03 [id number] Celebrex medicatio n Not available Not available Not available 01/22/2023 26364 7 RxNorm Padmini Chasequis t null, [facility] 3 16:19:08 Medications Name Sig Start [...] Updated DateTime 07/29/2024 187.96 cm 30.3 kg/m2 988929.8 g Ze childs MD, PHD [address] [facility] [address], [place], [address], [facility] 07/29/2024 14:33:21 Date Recorded Body height Body mass index (BMI) Body weight Provider Name and Address Organization Details Last Updated DateTime 10/28/2024 187.96 cm 30.3 kg/m2 769197.8 g Donal Zuñiga [facility] 10/28/2024 09:34:24 Social History Question Answer Notes LastModified by Organizat Beisen Details LastModified Time Tobacco Smoking Status Never Smoker Padmini Lora gloria, [facility] 01/22/2023 16:20:09 Do You Have An Advance Directive? No Information not available 07/29/2024 What Is Your Level Of Caffeine Consumption? 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 10/28/2024 [email or web address] Information not available 10/28/2024 Has Tobacco Cessation Counseling Been Provided? No Information not available 01/22/2023 Sex: Male Functional Status Question Answer Note LastModified by Organizat Beisen Details LastModified Time Do you use any [...] Time zoster recombinant 3 completed Landen castro [facility] 05/02/2024 14:56:21 COVID-19, mRNA, LNP-S, PF, 50 mcg/0.5 mL 4 completed Landen castro [facility] 05/02/2024 14:56:21 COVID-19, mRNA, LNP-S, PF, 50 mcg/0.5 mL 3 completed Landen Kiana null, [facility] 05/02/2024 14:56:21 Influenza, split virus, trivalent, PF 4 completed Landen Kiana null, [facility] 05/02/2024 14:56:21 Influenza, split virus, quadrivalent, PF 3 completed Landen Kiana null, [facility] 05/02/2024 14:56:21 Influenza, MDCK, quadrivalent, PF 9 completed Padmini Stromquist null, [facility] 01/22/2023 16:18:53 Influenza, MDCK, quadrivalent, PF 7 completed Padmini Stromquist null, [facility] 01/22/2023 16:18:53 zoster recombinant 3 completed Padmini Stromquist null, [facility] 01/22/2023 16:18:53 COVID-19, mRNA, LNP-S, PF, 100 mcg/0.5mL dose or 50 mcg/0.25mL dose 1 completed Padmini Stromquist null, [facility] 01/22/2023 16:18:53 COVID-19, mRNA, LNP-S, PF, 100 mcg/0.5mL dose or 50 mcg/0.25mL dose 1 completed Padmini Stromquist null, [facility] 01/22/2023 16:18:53 COVID-19, mRNA, LNP-S, PF, 100 mcg/0.5mL dose or 50 mcg/0.25mL dose 1 completed Padmini Stromquist null, [facility] 01/22/2023 16:18:53 COVID-19, mRNA, LNP-S, PF, 30 mcg/0.3 mL dose, sherry-sucrose 2 completed Padmini Stromquist null, [facility] 01/22/2023 16:18:53 COVID-19, mRNA, LNP-S, bivalent, PF, 30 mcg/0.3 mL dose 3 completed Padmini Stromquist null, [facility] 01/22/2023 16:18:53 Tdap 8 completed Padmini Stromquist null, [facility] 01/22/2023 16:18:53 Tdap 7 completed Padmini Stromquist null, [facility] 01/22/2023 16:18:53 Influenza, split virus, trivalent, preservative 2 completed Padmini Stromquist null, [facility] 01/22/2023 16:18:53 Influenza, split virus, trivalent, preservative 1 completed Padmini Stromquist null, [facility] 01/22/2023 16:18:53 Influenza, split virus, trivalent, preservative 0 completed Padmini Stromquist null, [facility] 01/22/2023 16:18:53 Influenza, split virus, trivalent, preservative 3 completed Padmini Stromquist null, [facility] 01/22/2023 16:18:53 Influenza, split virus, trivalent, preservative 8 completed Padmini Stromquist null, [facility] 01/22/2023 16:18:53 Influenza, split virus, trivalent, preservative 1 completed Padmini Stromquist null, [facility] 01/22/2023 16:18:53 Influenza, split virus, quadrivalent, PF 6 completed Padmini Stromquist null, [facility] 01/22/2023 16:18:53 Influenza, split virus, quadrivalent, PF 4 completed Padmini Stromquist null, [facility] 01/22/2023 16:18:53 Influenza, split virus, quadrivalent, PF 0 completed Padmini Stromquist null, [facility] 01/22/2023 16:18:53 Influenza, split virus, quadrivalent, PF 8 completed Padmini Stromquist null, [facility] 01/22/2023 16:18:53 Influenza, split virus, quadrivalent, PF 5 completed Padmini Lroa null, [place] [facility] 01/22/2023 16:18:53 Influenza, split virus, quadrivalent, PF 2 completed Padmini Lora null, [place] [facility] 01/22/2023 16:18:53 Past Encounters Encounter ID Performer Location Encounter Start Date Encounter Closed Date Diagnosis/Indication Diagnosis SNOMED-CT Code Diagnosis ICD10 Code Diagnosis Note [id number] Walter Mathews MD [facility] [address] [place] [address] 01/22/2023 15:53:37 01/28/2023 12:35:14 Prostate specific antigen above reference range 356127167 R97.20 We discussed the significan ce of [...] of underlying prostate cancer and also facilitate usp surveillan ce for men in which low [...] - Will obtain Prostate MRI Prostate nodule 49101569 N40.2 - As above [id number] Walter Mathews MD [facility] [address] [place] [address] 05/02/2024 14:41:14 05/03/2024 08:47:47 Prostate specific antigen above reference range 638907319 R97.20 We discussed the significan ce of [...] of underlying prostate cancer and also facilitate manager long term care surveillan ce for men in which low [...] with biopsy at this time. Prostate nodule 21930212 01 81459 N40.2 - As above [id number] Walter Mathews MD [address] [place] [address] 06/01/2024 13:37:33 06/06/2024 08:51:04 Prostate specific antigen above reference range 061937001 R97.20 - Now s/p TRUS biopsy- Phone [...] MRI: 57 cc, no lesions Prostate nodule 95375028 39442 N40.2 - As above [id number] Walter Mathews MD [address] [place] [address] 06/15/2024 11:52:41 06/20/2024 13:33:46 Prostate specific antigen above reference range 027630454 R97.20 - Now s/p TRUS biopsy- Prostate MRI: 57 cc, no lesions Prostate nodule 66592026 34097 N40.2 - As above Malignant neoplasm of prostate 218105718 C61 - Redding grade group 3- PSA 8.1 ng/mL- Will obtain staging PSMA [id number] Walter Mathews MD [facility] [address] [facility] [place] [address] 07/05/2024 10:22:09 07/14/2024 09:26:04 Malignant neoplasm of prostate 438133072 C61 - [place] grade group 3- PSA 8.1 ng/mL- Will obtain staging PSMA [id number] Ze becerril MD, PHD [address] [place] [address] 07/29/2024 14:19:57 08/03/2024 09:42:54 Malignant neoplasm of prostate 526755000 C61 [id number] [facility] [address] [place] [address] 10/28/2024 09:25:35 11/04/2024 09:49:12 Malignant neoplasm of prostate 994309760 C61 Health Concerns Section Related Observation LastModified by Organization Detai ls LastModified Time None Recorded Concern Status LastModified by Organization Details LastModified Time None Recorded Advance Directives Directive N: Payers Insurance Date Sequence Insurance Name Policy Number Policy Hayden Covered Member ID Hayden Member ID Guarantor Name 06/01/2024 1 [facility] [id number] Janes Klein [id number] Janes Klein 11/04/2024 1 [facility] [id number] Janes Klein [id number] Janes Klein Notes Date Note Type Note [...] Family history of prostate cancer: None [facility] prostate cancer risk assessment tool: 77% [...] onset of procedure. Walter Mathews MD [address] [facility],[address], [place], [address], [facility] 06/02/2024 02:36:52 06/15/2024 text/html Mr. Janes earl is a pleasant 63-year-old gentleman who is referred to me by his primary care physician, Lalo Bass MD , regarding elevated PSA. Patient has undergone PSA screening as part of his annual well visit and has been noted to be elevated. Voiding symptoms: occasional nocturia but not bothersome Family history of prostate cancer: None [facility] prostate cancer risk assessment tool: 77% [...] 06/15/2024:S/p prostate biopsy, no immediate issues. Pathology: Redding 4+3 Prior to conducting our telephone visit, [...] and coordinate their care. Walter Mathews MD [address] [place] [address],[address], [place], [address], [facility] 06/15/2024 14:19:32 07/05/2024 text/html Name{{ JANES KLEIN#}}MRN{{PATIE NTMRN [id number]#}}{ {PATIENTDOB [birth year] 60#}}HT{{ 6FT 2IN#}}WT{{ 236#}}Redd e [...] Alisa Rios}} Scanned by{{Wood Brownwcett* Alisa Diane VideoJaxraj}} Uptake time{{ 57#}}min Minutes/bed{{ 3#}} Марина castro [facility] 07/13/2024 15:15:07 07/29/2024 text/html 64M with prostat e cancer. 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 Overall doing well since surgery. He has increased activity to a near normal level. He reports minimal pain and denies leg swelling, problems with incisions, or fevers. Taking cipro as prescribed. BI AGUILA PA-C [address] [place] [address],[address], [place], [address], [facility] 10/28/2024 10:15:07
--- OUTSIDE RECORDS SUMMARY | 2024-11-26 07:43 | XMS_ITS | Clinical Summary ---
Author Organization [facility] Address [address] [place] [id number] Care Team Providers Care Woods Superintendent Name Role Phone Lalo Bass MD Primary Care Provider [phone] Jackson Rosenthal MD Unavailable [phone] Allergies Active Allergy Reactions Criticality Noted Date Comments Celecoxib Rash 07/31/2006 Gluten *Unknown 11/11/2022 Celiac Disease Penicillins Rash 07/31/2006 Medications cholecalciferol (Vitamin D-3) 2,000 unit capsuleIndications:Age -related osteoporosis with current pathological fracture with routine healing Take 1 Capsule (2,000 units) by mouth once daily. 0 022 Active calcium combo no.2-vit. D3 (CITRACAL + D SLOW REL.) 600 mg-12.5 mcg (500 unit) Extended-Release tabletIndications:Calc ium deficiency,Secondary hyperparathyroidism (HC) Take 1 Tablet (600 mg) by mouth two times daily. 180 Tablet 3 023 Active medication order composerIndications:Cl uster headache 10 L by facemask for 10-20 minutes as needed for cluster headaches 1 Container 023 Active oxygen-air delivery systems (HOME OXYGEN)Indications:Int ractable episodic cluster headache Oxygen for home use. Liters per minute: 4 per nasal cannula. Frequency of use:Use oxygen with onset of cluster headaches Length of need: 99 Months. 1 Each 023 Active ferrous sulfate, 65 mg elemental, (Iron) tablet Take 325 mg by mouth every Thursday, Thursday and Thursday. 3 times weekly Thursday, Thursday, Thursday Active rosuvastatin (CRESTOR) 10 mg tabletIndications:Hype rlipidemia, unspecified hyperlipidemia type Take 1 Tablet (10 mg) by mouth once daily with evening meal. 90 Tablet 3 024 Active famotidine (PEPCID) 20 mg tabletIndications:Berta roesophageal reflux disease, unspecified whether esophagitis present Take 1 Tablet (20 mg) by mouth once daily. 90 Tablet 3 024 Active alendronate (FOSAMAX) 70 mg tabletIndications:Age- related osteoporosis with current pathological fracture with routine healing Take 1 Tablet (70 mg) by mouth once a week in the morning. Take on empty stomach with full glass of water. Do not lie down for 1 hr. 12 Tablet 3 025 Active vit-min eye [id number] capsule Take 1 Capsule by mouth once daily. Areds 2 Active aspirin 81 mg enteric coated tabletIndications:Pros cruz cancer (HC) Take 1 Tablet (81 mg) by mouth once daily with a meal. Ok to restart 5 days after surgery 025 Active docusate 100 mg capsuleIndications:Pro state cancer (HC) Take 1 Capsule (100 mg) by mouth 2 times daily if needed for Constipation. 30 Capsule 025 Active oxyCODONE 5 mg immediate release tabletIndications:Pros cruz cancer (HC) Take 1 Tablet (5 mg) by mouth every 4 hours if needed for Pain. 8 Tablet 10/21/19 25 12:14 PM CDT 025 Active ciprofloxacin 500 mg tabletIndications:Pros cruz cancer (HC) Take 1 Tablet (500 mg) by mouth two times daily before meals for 3 days. To start taking the day PRIOR to your appointment for catheter removal. 6 Tablet 025 2024 Active Problems Patient Care Coordination No te Formatting of this note is d ifferent from the original. HF/Structural/Prevention Research Eligibility Review Date: 08/15/19 Upcoming Visit Location: [facility] Age: 59 y.o. Research Purpose Insurance Type: Private Insurance Body mass index is 31.39 kg/m . Social History Tobacco Use Smoking Status Never Smoker Smokeless Tobacco Never Used Social History Substance and Sexual Activity Alcohol Use Yes Alcohol/week: 0.0 standard drinks Comment: 4-5 drinks a month Comments: HF: DNQ Structural: DNQ Prevention: No DMII Vesalius: no d/t low intensity statin Problem Noted Date Diagnosed Date Prostate cancer 09/21/2024 Celiac disease 09/22/2022 Age-related osteoporosis wit h current pathological fracture with routine healing 12/13/2021 Overview (12/13/2021): Check bone density in December 2023. Skin cancer 07/18/2021 Overview (08/21/2022): 07/2022, left timmons, SCCIS, Mohs done 08/21/[address] Gu 12/29/2019, LEFT WRIST, EXCISION: SCC in situ; Margins: Negative; excision done by gen surg Dr. Guerin. Hyperlipidemia, unspecified 04/10/2016 Paroxysmal atrial fibrillation 04/09/2016 Overview (09/21/2024): First episode was in 2014. Underwent an ablation in 2019 with no atrial fibrillation since then. Lalo Bass MD signed electronically .................... 09/21/2024 Anticoagulation monitoring, INR range 2-3 2014 Screen for colon cancer 06/13/2010 Overview (12/28/2020): Colonoscopy 06/2010 normal repeat in 10 years Colonoscopy 12/2020 normal, repeat in 10 years Glomerulonephritis 07/05/2009 Overview (07/05/2009): 1982 Cluster headache 02/25/2008 Esophageal reflux 07/31/2006 Overview (07/15/2010): EGD 07/2009 hiatal hernia, no follow up EGD needed Stricture and stenosis of esophagus 07/31/2006 Overview (08/25/2011): Stay on PROTON PUMP INHIBITOR for life. No further surveilance upper endoscopies necessary per Dr. 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 Encounters Date Type Department Care Team Description 10/19/2024 7:44 AM CDT Anesthesia Event [facility] [address] [place] [address] Francis Roe MD Klein, Alyssa, ROSANNA Student 10/19/2024 7:00 AM CDT - 10/19/2024 12:13 PM CDT Surgery [facility] [address] [place] [address] Ze Weldon MD ROBOTIC ASSISTED LAPAROSCOPIC PROSTATECTOMY, BILATERAL PELVIC LYMPN NODE DISSECTION 10/19/2024 5:46 AM CDT - 10/20/2024 1:45 PM CDT Hospital Encounter [facility] [address] [place] [address] Ze Weldon MD Prostate cancer (HC) (Primary Dx) Discharge Disposition: Home Self Care 10/18/2024 Travel 09/21/2024 3:40 PM CDT Office Visit [facility] [address] [place] [address] Lalo Bass MD Preoperative Exam (Prostate surgery 10/19) 09/21/2024 Travel 09/16/2024 Travel from Last 3 Months Immunizations Immunization Administration Dates Next Due AMB Influenza, IIV3 (Age >=3 years)(Flu Clinic Only) 04/28/2012,05/11/2008 AMB Influenza, IIV4 PF (=>6 mos Flulaval,Fluzone Fluarix)(Flu Clinic Only) 04/22/2014 COVID-19 VACCINE SPIKEVAX (M ODERNA 50MCG/0.5ML) 12YO+ PFS 03/22/2024,04/29/2023 COVID-19 vaccine (Moderna 100mcg/0.5mL) PF, MDV 06/20/2021,10/19/2020,09/21/2020 COVID-19 vaccine ([employer]Bio NTech 30mcg/0.3mL) 12YO+ BIVALENT PF, MDV 07/09/2022 COVID-19 vaccine (Pfizer-Bio NTech 30mcg/0.3mL) 12YO+ JUSTIN-SUCROSE PF, MDV 12/13/2021 INFLUENZA, IIV3 PF (AGE >= 6 MO) 03/22/2024 Influenza, IIV3 (Age >=3 years) 05/23/20 21,05/10/2013,04/30/2011,2009 Influenza, IIV4 04/29/2023,,04/30/2020,2017,04/09/2016,05/11/2015 Influenza,CCIIV4 PRESERV FREE 06/08/2019, 017 Tdap 09/01/2017,11/14/2006 Zoster (Shingrix-RZV, recombinant) 04/02/2023, Family History Medical History Relation Name Comments Cancer Brother 1 Greg brain; of postop complications Blood Disease Father blood clot to intestinal blood supply; at 79 of ischemic bowel Other Mother hepatitis, live r failure Pulmonary embolism Sister 1 Trish of p ulmonary embolus Relation Name Status Comments Brother 1 Greg (Age 49) Brother 2 Royce Alive Father (Age 79) blood clot Mother (Age 58) liver fail ure, hepatitis Sister 1 Trish (Age 58) Sister 2 Geneva Alive Social History Tobacco Use Types Packs/Day Years Used Date Smoking Tobacco: Never Passive Smoke Exposure: Never Smokeless Tobacco: Never Tobacco Cessation:Counseling Given: Yes Alcohol Use Standard Drinks/Week Comments Not Currently 0 (1 standard drink = 0.6 oz pur e alcohol) PHQ-2 Answer Date Recorded PHQ-2 TOTAL SCORE 0 03/22/2024 Social Connections Answer Date Recorded Do you often feel lonely or isolated from those around you? 0 02/02/2024 Alcohol Use Answer Date Recorded How often do you have a drink containing alcohol ? 1 02/02/2024 How many drinks containing a lcohol do you have on a typical day when you are drinking? 0 02/02/2024 How often do you have five or more drinks on one occasion? 0 02/02/2024 Financial Resource Strain Answer Date R ecorded Difficulty of Paying Living Expenses 3 02/02/2024 Difficulty of Paying Living Expenses Not on file 02/02/2024 Food Insecurity Answer Date Recorded Do you worry your food will run out before you are able to buy more? 1 02/02/2024 Transportation Needs Answer Date Record ed Does lack of transportation keep you from medica l appointments? 1 02/02/2024 Does lack of transportation keep you from work, meetings or getting things that you need? 1 02/02/2024 Housing Stability Answer Date Recorded What is your housing situation today? 1 02/02/2024 Interpersonal Safety Answer Date Record ed Are you being hit, kicked, p ushed or yelled at (see row info)? No 10/19/2024 Interpersonal Safety Abuse 12 - 18 Not on file 10/19/2024 Interpersonal Safety Ambulatory Vulnerability No t on file 10/19/2024 Utilities Answer Date Recorded Do you have trouble paying f or utilities (for example, heat, electricity, water, phone)? 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 Not on file Not on file Not on file Obstetrics History Last Filed Vital Signs Vital Sign Reading Time Taken Comments Blood Pressure 121/71 10/20/2024 8:00 AM CDT Pulse 92 10/20/2024 8:00 AM CDT Temperature 37.4 C (99.3 F) 10/20/2024 8:00 AM CDT Respiratory Rate 16 10/20/2024 8:00 AM CDT Oxygen Saturation 94% 10/20/2024 8:00 AM CDT Inhaled Oxygen Concentration - - Weight 108.6 kg (239 lb 6.4 oz) 10/20/2024 5:23 AM CDT Height 184.8 cm (6' 0.75) 10/19/2024 6:25 AM CD T Body Mass Index 31.8 10/19/2024 6:25 AM CDT Plan of Treatment Upcoming Encounters Date Type Department Care Team (Late st Contact Info) Description 07/25/2025 7:30 AM SALES TEAM MEMBER Office Visit [facility] [address] [place] [address] rAabella Wen MD [address] [facility] [address] [place] [id number] 08/09/2025 9:00 AM SALES TEAM MEMBER Office Visit [facility] [address] [place] [phone] Jackson Rosenthal MD [address] [place] [id number] Health Maintenance Due Date Last Done Comments HIV for age 15-65 1975 Pneumococcal series for age 50+ (1 of 2 - PCV) 1979 RSV vaccine for adults or (1 - Risk 60-74 years 1-dose series) 2020 COVID-19 vaccine series (8 - Moderna risk season) 2024 03/22/2024, 04/29/2023, 07/09/2022, Additional history exists Depression screening for age 12+ 03/22/2025 03/22/2024, 02/05/2024, 02/02/2024, Additional history exists BMI (ht and wt on same day) for age 18+ 09/21/2025 09/21/2024, 03/22/2024, 08/05/2023, Additional history exists Tetanus booster 09/01/2027 09/01/2017, 11/14/2006 Lipids for age 45-75 02/01/2029 02/02/2024, 01/13/2023, 06/26/2022, Additional history exists Colonoscopy through age 75 12/28/203012/28, 12/28/2020, 12/28/2020, Additional history exists Tdap Completed 09/01/2017, 11/14/2006 Hepatitis C screening for age 18-79 Completed 12/13/2021 Zoster (shingles) series for age 50+ Completed 04/02/2023, 01/13/2023 Influenza Vaccine Completed 03/22/2024, , 05/21/2022, Additional history exists Hepatitis B series for 19+ Aged Out N o longer eligible based on patient's age to complete this topic Procedures Procedure Name Priority Date/Time Associated Diagnosis Comments HEMOGLOBIN Early AM 10/20/2024 4:54 AM CDT BASIC METABOLIC PANEL Early AM 10/20/2024 4:53 AM CDT PATH TISSUE EXAM Today 10/19/2024 10:1 7 AM CDT ENDOTRACHEAL TUBE Routine 10/19/2024 8:1 9 AM CDT ROBOTIC ASSISTED LYMPHADENECTOMY PELVIC Tier 1 10/19/2024 7:10 AM CDT Malignant neoplasm of prostate ROBOTIC PROSTATECTOMY XI Tier 1 10/19/2024 7:10 AM CDT Malignant neoplasm of prostate TYPE & SCREEN Today 10/19/2024 6:49 AM CDT SCAN-CARDIAC STRIP 10/19/2024 12 :00 AM CDT HEMOGLOBIN Routine 09/21/2024 5:09 PM CDT Preoperative general physical examination LIPID PANEL W REFLEX MEASURED LDL Routine 02/02/2024 8:14 AM CDT Hyperlipidemia, unspecified hyperlipidemia type ANTI HCV Routine 12/13/2021 11:32 AM CDT Need for hepatitis C screening test COLONOSCOPY SCREENING Routine 12/28/2020 10:32 AM CDT Screening for colon cancer from Last 3 Months or Most Recently Relevant to Health Maintenance Results * (ABNORMAL) Hemoglobin (10/20/2024 4:54 AM CDT) Only the most recent of2 resultswithin the time period is included. HEMOGLOBIN 11.8(L) 13.5 - 17.5 g/dL 10/20/2024 5:13 AM CDT [facility] MCV 79(L) 80 - 100 fL 10/20/2024 5:13 AM CDT [facility] Blood BLOOD SPECIMEN / Unknown Venipuncture / Unknown 10/20/2024 4:54 AM CDT 10/20/2024 5:07 AM CDT us Mariola Ferris PA HEMATOLOGY Final Re sult [facility] [address] [place] [address], [place] * (ABNORMAL) Basic Metabolic Panel (10/20/2024 4:53 AM CDT) Pathologist [facility] SODIUM 137 136 - 145 mmol/L 10/20/2024 5:49 AM CDT [facility] POTASSIUM 4.1 3.5 - 5.1 mmol/L 10/20/2024 5:49 AM CDT [facility] CHLORIDE 103 98 - 107 mmol/L 10/20/2024 5:49 AM CDT [facility] CO2,TOTAL 23 22 - 29 mmol/L 10/20/2024 5:49 AM CDT [facility] ANION GAP 11 5 - 18 10/20/2024 5:49 AM CDT [facility] GLUCOSE 110(H) 70 - 99 mg/dL 10/20/2024 5:49 AM CDT [facility] CALCIUM 7.9(L) 8.8 - 10.4 mg/dL 10/20/2024 5:49 AM CDT [facility] Comment: Reference ranges for this test were updated on 05/10/2024 to reflect our healthy population more accurately. Reference range changes are not retroactively applied to results, but previous results using the same methodology can be interpreted in the context of the new reference range. BUN 15 8 - 23 mg/dL 10/20/2024 5:49 AM CDT [facility] CREATININE 1.14 0.70 - 1.20 mg/dL 10/20/2024 5:49 AM CDT [facility] BUN/CREAT RATIO 13 10 - 20 5:49 AM CDT [facility] eGFR 72(L) >90 mL/min/1. 73m2 10/20/2024 5:49 AM CDT [facility] Comment:As of 2021, eG FR is calculated by the CKD-EPI creatinine equation without race adjustment. eGFR can be influenced by muscle mass, exercise, and diet. The reported eGFR is an estimation only and is only applicable if the renal function is stable. Blood BLOOD SPECIMEN / Unknown Venipuncture / Unknown 10/20/2024 4:53 AM CDT 10/20/2024 5:06 AM CDT us Mariola EVANS CHEMISTRY Final Re sult [facility] [address] [place] [address], [place] * PATH TISSUE EXAM (10/19/2024 10:17 AM CDT) Case Report Pathology Report Case: [id number] Authorizing Provider: Ze Weldon Collected: 10/19/2024 Rashel Christiansen MD Ordering Location: [facility] Received: 10/19/2024 1140 [facility] Pathologist: Juan Contreras MD Specimens: A) - Tissue, Other, Pia Prostatic Fat B) - Right Pelvic Lymph Node, Nodes C) - Left Pelvic Lymph Node, Nodes D) - Prostate, Prostate and Seminal Vesicles 10/21/2024 5:11 PM CDT [facility] Final Diagnosis A) PERIPROSTATIC FAT, BIOPSY: 1. Fibrovascular adipose tissue 2. Negative for malignancy B) LYMPH NODES, RIGHT PELVIC, REGIONAL DISSECTION: Seven lymph nodes, negative for metastatic carcinoma (0/7) C) LYMPH NODES, LEFT PELVIC, REGIONAL DISSECTION: Five lymph nodes, negative for metastatic carcinoma (0/5) D) PROSTATE AND SEMINAL VESICLES, ROBOTIC RADICAL PROSTATECTOMY: 1. Prostatic adenocarcinoma, Sakshi score 4 + 3 = 7 (ISUP Grade Group 3) 2. Minor tertiary Sakshi's pattern 5 tumor is present 3. Tumor is confined to the prostate 4. The surgical margins are negative for tumor 5. Negative for lymphatic/vascula r invasion by tumor 6. Background prostate with nodular hyperplasia and chronic active prostatitis 7. Please see prostate cancer staging parameters below 10/21/2024 5:11 PM CDT [facility]AT[facility]-C ENTRAL LABORATORY at 1711 CDT Clinical Information 64 yo with history of prostatic adenocarcinoma, Mancos's grade 4 + 3 = 7/10, ISUP Grade group 3. PSA = 8.1 10/21/2024 5:11 PM CDT [facility]-C ENTRAL LABORATORY Gross Description A) Received fresh labeled with the patient's name and periprostatic fat, is a 3 x 2.5 x 1 cm aggregate of disrupted lobulated adipose tissues with thin fibrous components constituting less than 5% of the volume. No lesions identified. Entirely submitted in 4 cassettes. B) Received fresh labeled with the patient's name and right pelvic lymph node, is a 5 x 4 x 2 cm aggregate of disrupted lobulated adipose tissues which contains 7 possible lymph nodes. The lymph nodes measure between 0.2 and 4 cm greatest dimension. The lymph nodes have fatty cut surfaces. No lesion is identified. Entirely submitted: 1-2. 1 lymph node, 10 slices 3. 3 possible lymph nodes, intact 4-6. 1 lymph node, 12 slices 7. 2 lymph nodes, bisected, separately inked green and red C) Received fresh labeled with the patient's name and left pelvic lymph node, is a 4.5 x 3.5 x 1.8 cm aggregate of disrupted lobulated adipose tissues. Section reveals 4 possible lymph nodes measuring between 0.2 and 3.3 cm greatest dimension. The lymph nodes have fatty, focally pink-dior solid cut surfaces. A discrete lesion is not seen. Entirely submitted: 1. 1 lymph node, 7 slices 2-3. 1 lymph node, 10 slices 4. 2 possible lymph nodes, intact 5-6. Adipose tissue D) Received fresh, labeled with the patient's name and prostate and seminal vesicles, is a 69 gram, 4.8 (apex-base) x 5.3 (left-right) x 4.5 (anterior-posteri or) cm trimmed prostatectomy specimen. The attached adnexa have dimensions as follows: right seminal vesicle (3.3 x 1.8 x 1 cm), right vas deferens (4.3 x 0.7 cm), left seminal vesicle (3.5 x 2 x 0.8 cm), and left vas deferens (4.3 x 0.6 cm). The prostate gland is inked: Right: Green Left: Blue Posterior: Black Apical urethral meatus: Red The specimen is serially sectioned from apex to base into 13 slices revealing a 3 x 1 x 1 cm area of induration at the right and left posterior quadrants distally. A discrete lesion is not seen. The remaining cut surfaces consist of periurethral nodularity. [employer] Consult[employer] sections are submitted: 1-2. Slice 1 margin, right and left apex 3-4. Slice 2, right and left 5-8. Slice 3 with indurated posterior quadrants, right anterior/posterio r and left anterior/posterio r 9-12. Slice 4 with indurated posterior quadrants, right anterior/posterio r and left anterior/posterio r 13-14. Slice 5 remaining indurated posterior quadrants, right and left 16-17. Slice 6, right anterior, posterior/lateral and posterior/medial 18-20. Slice 6, left anterior, posterior/lateral and posterior/medial 21-26. Slice 8, right anterior/mid/post erior and left anterior/mid/post erior 27-30. Slice 10, right anterior/posterio r and left anterior/posterio r 31-32. Slice 12, right and left 33-34. Slice 13 margin, right and left base 35. Right seminal vesicle insertion and vas deferens margin, en face 36. Left seminal vesicle insertion and vas deferens margin, en face 37. Adnexal cross-section we got a full house at the insertion 38. Mid adnexal cross-section Note: Approximately 70% of the specimen is submitted. Time and date in formalin: 1306 on 10/19/2024. DPL 10/19/2024 10/21/2024 5:11 PM CDT [facility]-C ENTRAL LABORATORY Microscopic Description The final diagnosis is based on microscopic examination of appropriate sections of all specimens. 10/21/2024 5:11 PM CDT [facility] SYNOPTIC REPORTING PROSTATE GLAND: Radical Prostatectomy PROSTATE GLAND: RADICAL PROSTATECTOMY - All Specimens 8th Edition - Protocol posted: 03/25/2023 SPECIMEN Procedure: Radical prostatectomy Prostate Size: Prostate Weight (Grams): 69 g Prostate Greatest Dimension (Centimeters): 5.3 cm Additional Prostate Dimension (Centimeters): 4.8 cm Additional Prostate Dimension (Centimeters): 4.5 cm TUMOR Histologic Type: Acinar adenocarcinoma, conventional (usual) Histologic Grade: Grade: Grade group 3 (Sakshi Score 4 + 3 = 7) Minor Tertiary Pattern 5 (less than 5%): Present Percentage of Pattern 4: 71 - 80% Intraductal Carcinoma (IDC): Not identified Cribriform Glands: Present Treatment Effect: No known presurgical therapy TUMOR QUANTITATION: Estimated Percentage of Prostate Involved by Tumor: 6 - 10% Extraprostatic Extension (EPE): Not identified Urinary Bladder Neck Invasion: Not identified Seminal Vesicle Invasion: Not identified Lymphatic and / or Vascular Invasion: Not Identified Perineural Invasion: Present MARGINS Margin Status: All margins negative for invasive carcinoma REGIONAL LYMPH NODES Regional Lymph Node Status: : All regional lymph nodes negative for tumor Number of Lymph Nodes Examined: 12 pTNM CLASSIFICATION (AJCC 8th Edition) Reporting of pT, pN, and (when applicable) pM categories is based on information available to the pathologist at the time the report is issued. As per the AJCC (Chapter 1, 8th Ed.) it is the managing physician s responsibility to establish the final pathologic stage based upon all pertinent information, including but potentially not limited to this pathology report. pT Category: pT2 T Suffix: (m) pN Category: pN0 ADDITIONAL FINDINGS Additional Findings: Nodular prostatic hyperplasia Additional Findings: Inflammation (type): chronic active prostatitis SPECIAL STUDIES Ancillary Studies: Not performed Comment(s): D10 10/21/2024 5:11 PM CDT [facility] Additional Information Interpreted at [facility] [employer] [facility] Central Laboratory - [address], [place] [address] 10/21/2024 5:11 PM CDT [facility] LABORATORY-C ENTRAL LABORATORY Tissue TISSUE SPECIMEN / Unknown 10/19/2024 10:17 AM CDT 10/19/2024 11:40 AM CDT Tissue specimen (specimen) (Right Pelvic Lymph Node) 10/19/2024 12:51 PM CDT 10/19/2024 12:59 PM CDT Tissue specimen (specimen) (Left Pelvic Lymph Node) 10/19/2024 12:51 PM CDT 10/19/2024 12:59 PM CDT Tissue specimen (specimen) SPECIMEN FROM PROSTATE / Unknown 10/19/2024 12:52 PM CDT 10/19/2024 12:59 PM CDT us Ze Weldon MD PATHOLOGY/CYTOLOGY Final Result [facility] [address] [place] [id number], * ETT (10/19/2024 8:19 AM CDT) Narrative Radha Gaffney CRNA Student - 10/19/2024 8:19 AM CDT Radha Gaffney CRNA Student 10/19/2024 8:20 AM Procedure: ETT Patient location during procedure: OR ETT Properties Mask Ventilation: oral airway Final Technique: video laryngoscopy Type: straight Location: oral Cuffed: yes Tube Size: 8.0 mm Stylet: yes Laryngoscope Blade: Glidescope Blade Size: 4 Cormack-Lehane Grade View: 2 Insertion Attempts: 2 Placement Verification: auscultation, end tidal CO2 and symmetrical chest wall movement Assessment: pharynx clear, atraumatic and dentition unchanged Secured at: 24 Measured From: teeth Difficulty: 1 (somewhat) Difficulty Comment: anterior glottis and small mouth Francis Roe MD ANESTHESIA PX NOTE ORDERA BLES Final Result * TYPE & SCREEN (10/19/2024 6:49 AM CDT) ABORH O Rh Positive 10/19/2024 7:47 AM CDT [facility] ANTIBODY SCREEN Negative Negative 10/19/2024 7:47 AM CDT [facility] SPECIMEN EXPIRATION DATE/TIME 10/22/24 23:59 10/19/2024 7:47 AM CDT [facility] Blood BLOOD SPECIMEN / Unknown Venipuncture / Unknown 10/19/2024 6:49 AM CDT 10/19/2024 7:01 AM CDT us [facility]ola [facility] Final Re sult [facility] [address] [place] [address], [place] [phone] * SCAN-CARDIAC STRIP (10/19/2024 12:00 AM CDT) Narrative 10/19/2024 12:00 AM CDT Ordered by an unspecified provider. us Other Clinical Staff OTHER Final Resul t * LIPID PANEL W REFLEX MEASURED LDL (02/02/2024 8:14 AM CDT) [facility] CHOLESTEROL,TOTAL 121 100 - 199 mg/dL 02/02/2024 5:27 PM CDT [facility] Comment: Cholesterol, Total Reference Ranges Desirable <200 mg/dL Borderline 200-239 mg/dL High >=240 mg/dL TRIGLYCERIDES 86 <150 mg/dL 02/02/2024 5:27 PM CDT [facility] HDL CHOLESTEROL 47 >40 mg/dL 5:27 PM CDT [facility] NON-HDL CHOLESTEROL 74 <145 mg/dl 02/02/2024 5:27 PM CDT [facility] CHOL/HDL RATIO 2.57 <4.50 02/02/2024 5:27 PM CDT [facility] LDL CHOLESTEROL 57 <=130 mg/dL 02/02/2024 5:27 PM CDT [facility] VLDL CHOLESTEROL 17 <=30 mg/dL 02/02/2024 5:27 PM CDT [facility] PROVIDER ORDERED STATUS RANDOM 02/02/2024 5:27 PM CDT [facility] Blood BLOOD SPECIMEN / Unknown Venipuncture / Unknown 02/02/2024 8:14 AM CDT 02/02/2024 8:15 AM CDT us Lalo Bass MD CHEMISTRY Final Resu lt [facility] [address] [place] [address], [place] * ANTI HCV (12/13/2021 11:32 AM CDT) HEPATITIS C ANTIBODY Non-React jorje Non-React jorje 12/14/2021 2:57 AM CDT [facility] Comment:Antibodies to HCV no t detected; does not exclude the possibility of exposure to HCV. Blood BLOOD SPECIMEN / Unknown Venipuncture / Unknown 12/13/2021 11:32 AM CDT 12/13/2021 11:33 AM CDT us Lalo Bass MD SEND OUTS Final Resu lt [facility] [address] [place] [address], [place] * COLONOSCOPY (12/28/2020 10:15 AM CDT) 12/28/2020 10:1 5 AM CDT Narrative Transcriptions Galo Perez MD - 12/28/2020 11:27 AM CDT Patient Name: Rico Morales Procedure Date: 12/28/2020 Gender: Male Date of : 1960 Admit Type: Outpatient Procedure: Colonoscopy Proceduralist: Galo Perez MD , Eden Warner RN(Nurse) Referring MD: Lalo Bass Indications/Pre-Op Diagnosis: Screening for colorectal malignant neoplasm, Last colonoscopy: July 2010 Medications: Fentanyl 100 micrograms IV, Midazolam 2 mgIV, The level of sedation administered wasmoderate Procedure Description: The patient had risks, benefits and alternatives explained to andgave informed consent. The patient had a stable cardiopulmonary status and judged an adequate candidate for conscious sedation. The Colonoscope was passed through the anus and advanced to thececum, identified by appendiceal orifice and ileocecal valve. Thecolonoscopy was performed without difficulty. The patient tolerated the procedure well. The quality of the bowel preparation was good. The ileocecal valve, appendiceal orifice, and rectum were photographed. Complications: No immediate complications. Estimated Blood Loss & Specimen: Estimated blood loss: none. Specimen collected - None Findings: The perianal and digital rectal examinations were normal. The entire examined colon appeared normal on direct and retroflexion views. Impressions/Post-Op Diagnosis: - The entire examined colon is normal on direct and retroflexionviews. - No specimens collected. Recommendation: - Patient has a contact number available for emergencies. The signsand symptoms of potential delayed complications were discussed with the patient. Return to normal activities tomorrow. Written discharge instructions were provided to the patient. - Resume previous diet. - Continue present medications. - Repeat colonoscopy in 10 years for screening purposes. Moderate Sedation: Moderate (conscious) sedation was administered by the endoscopy nurse and supervised by the endoscopist. The following parameters were monitored: oxygen saturation, heart rate, respiratory rate, blood pressure, adequacy of pulmonary ventilation and reponse to care. Please refer to the patient's medical record flowsheets and nursing notes for moderate sedation details. Total physician intraservice time was 11 minutes. Galo Perez MD 12/28/2020 11:27:37 AM This report has been signed electronically. Note Initiated On: 12/28/2020 10:15 AM Procedure Code(s): --- Professional --- 08210, Colonoscopy, flexible; diagnostic, including collection of specimen(s) bybrushing or washing, when performed (separateprocedure) Diagnosis Code(s): --- Professional --- Z12.11, Encounter for screening formalignant neoplasm of colon CPT copyright 2020 [employer]. All rights reserved. The codes documented in this report are preliminary and upon core dropper reviewmay be revised to meet current compliance requirements. Scope In: 11:13:09 AM Scope Withdrawal Time 0 hours 7 minutes 12 seconds Scope Out: 11:23:31 AM Galo Perez MD PROCEDURE ORD Final Res ult from Last 3 Months or Most Recently Relevant to Health Maintenance Insurance [facility] [employer] WORK[employer] COMP WORK[employer] Advance Directives * Full Code (Latest Code Status on File) Date Activated Date Inactivated Comments 10/19/2024 5:53 AM 10/20/2024 4:00 PM Question Answer Comments Code Status Discussion: Unable to Assess Preferences, Provider to review later * Full Code Date Activated Date Inactivated Comments 09/14/2019 5:44 PM 09/15/2019 1:28 PM Care Teams Woods Superintendent Relationship Specialty Start Date End Date Lalo Bass MD [address] [place] [address] PCP - General Family Practice 08/13/11 Jackson Rosenthal MD [address], [place] [address] Endocrinology 08/01/24
--- OUTSIDE RECORDS SUMMARY | 2024-11-26 07:43 | XMS_ITS | Continuity of Care Document ---
Author Organization [facility] Address [address] [place] [address] Assessment Encounter Date Assessment Date Assessment LastModified by Organization Details LastModified Time 10/28/2024 10/28/2024 64M s/p RALP + PLND [...] Dr. Weldon with PSA in 6-8 weeks [email or web address] Not available 10/28/2024 09:59:15 Plan of Treatment Reminders Order Date Submit Date Provider Last Modified By Organization Details Last Modified Time Details Appointments ESTABLISH ED 10 2024 12:50P M Ze guevara MD, PHD Not available Not available Not available Lab None recorded. Referral None recorded. Procedures None recorded. Surgeries None recorded. Imaging None recorded. Medication Orders None recorded. Patient TargetsNo targets recorded. Patient InstructionsNo instructions recorded. Reason for Referral None Reported. Problems Name Problem SNOMED Code Status Onset Date Resolution Date Notes Provider Name and Address Organization Details Recorded Time Malignant neoplasm of prostate 529177338 Active 025 Ze guevara MD, PHD [address], [address], [place] [facility] 15:15:56 Problem Notes None recorded. Procedures Surgical History Date Name Laterality Status Provider Name and Address Organization Details Recorded Time 10/29/19 25 Park Catheter Removal completed oDnal Zuñiga [facility] 10/28/2024 09:35:39 07/05/20 24 PSMA-PET CT completed Марина Ever [facility] 07/13/2024 15:13:47 06/01/20 24 Prostate Biopsy Procedure completed Walter Mccollum MD [address], [place], [address], [facility] 06/02/2024 02:36:37 06/01/20 24 Rocephin/Ceftriax one completed Padmini Cueva [facility] 06/01/2024 14:22:57 05/02/20 24 COMPLEX VISIT completed Walter Mccollum MD [address], [place], [address], [facility] 05/02/2024 09:29:16 05/02/20 24 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 Procedure Notes None recorded. Medical Equipment None Reported. Allergies Allergen ID Allergen Name Allergen Category Reaction Reaction Severity Criticality Documentation Date Start Date Code Code System Note Provider Name and Address Organization Details Recorded Time 571501 Product containin g penicilli n (product) medicatio n rash mild Not available 01/22/2023 83052 8001 SNOMED Padmini castro [facility] 16:19:03 [id number] Celebrex medicatio n Not available Not available Not available 01/22/2023 71469 7 RxNorm Padmini Sandy castro, [facility] 16:19:08 Medications Name Sig Start Date Stop [...] Updated DateTime 10/28/2024 187.96 cm 30.3 kg/m2 069241.8 g Donal Yogesh [facility] 10/28/2024 09:34:24 Social History Question Answer Notes LastModified by Organizat ion Details LastModified Time Tobacco Smoking Status Never Smoker Padmini Guido castro [facility] 01/22/2023 16:20:09 Do You Have An Advance Directive? No Information not available 07/29/2024 What Is Your Level Of Caffeine Consumption? Occasional Information not available 01/22/2023 Do You Have A Medical Power Of Undercover Cop? No Information not available 07/29/2024 What Was The Date Of Your Most Recent Tobacco Screening? 10/28/2024 [email or web address] Information not available 10/28/2024 Has Tobacco Cessation Counseling Been Provided? No Information not available 01/22/2023 Sex: Male Functional Status Question Answer Note LastModified by Organizat ion Details LastModified Time Do you use any [...] Not available 16:19:51 Medical History Condition Response Sexually Transmitted Infection N Diabetes N Other Y Bleeding Disorder N High Blood Pressure N Kidney Stones N High Cholesterol Y GERD/Acid Reflux Y Heart Disease N Cancer Y Depression N Lung Disease N Immunizations Vaccine Type Date Status Note Provider Nam e and Address Organization Details Recorded Time [facility] 14:56:21 COVID-19, mRNA, LNP-S, PF, 50 mcg/0.5 mL 4 [facility] 14:56:21 COVID-19, mRNA, LNP-S, PF, 50 mcg/0.5 mL 3 [facility] 14:56:21 Influenza, split virus, trivalent, PF [facility] 14:56:21 Influenza, split virus, quadrivalent, PF [facility] 14:56:21 Influenza, MDCK, quadrivalent, PF [facility] 16:18:53 Influenza, MDCK, quadrivalent, PF 7 completed Padmini Stromquist null, [facility] 01/22/2023 16:18:53 zoster recombinant 3 completed Padmini Stromquist null, [facility] 01/22/2023 16:18:53 COVID-19, mRNA, LNP-S, PF, 100 mcg/0.5mL dose or 50 mcg/0.25mL dose 1 completed Padmini Stromquist null, [facility] 01/22/2023 16:18:53 COVID-19, mRNA, LNP-S, PF, 100 mcg/0.5mL dose or 50 mcg/0.25mL dose 1 completed Padmini Stromquist null, [facility] 01/22/2023 16:18:53 COVID-19, mRNA, LNP-S, PF, 100 mcg/0.5mL dose or 50 mcg/0.25mL dose 1 completed Padmini Stromquist null, [facility] 01/22/2023 16:18:53 COVID-19, mRNA, LNP-S, PF, 30 mcg/0.3 mL dose, sherry-sucrose 2 completed Padmini Stromquist null, [facility] 01/22/2023 16:18:53 COVID-19, mRNA, LNP-S, bivalent, PF, 30 mcg/0.3 mL dose 3 completed Padmini Stromquist null, [facility] 01/22/2023 16:18:53 Tdap 8 completed Padmini Stromquist null, [facility] 01/22/2023 16:18:53 Tdap 7 completed Padmini Stromquist null, [facility] 01/22/2023 16:18:53 Influenza, split virus, trivalent, preservative 2 completed Padmini Stromquist null, [facility] 01/22/2023 16:18:53 Influenza, split virus, trivalent, preservative 1 completed Padmini Stromquist null, [facility] 01/22/2023 16:18:53 Influenza, split virus, trivalent, preservative 0 completed Padmini Stromquist null, [facility] 01/22/2023 16:18:53 Influenza, split virus, trivalent, preservative 3 completed Padmini Stromquist null, [facility] 01/22/2023 16:18:53 Influenza, split virus, trivalent, preservative 8 completed Padmini Stromquist null, [facility] 01/22/2023 16:18:53 Influenza, split virus, trivalent, preservative 1 completed Padmini Stromquist null, [facility] 01/22/2023 16:18:53 Influenza, split virus, quadrivalent, PF 6 completed Padmini Stromquist null, [facility] 01/22/2023 16:18:53 Influenza, split virus, quadrivalent, PF 4 completed Padmini Stromquist null, [facility] 01/22/2023 16:18:53 Influenza, split virus, quadrivalent, PF 0 completed Padmini Stromquist null, [facility] 01/22/2023 16:18:53 Influenza, split virus, quadrivalent, PF 8 completed Padmini Stromquist null, [facility] 01/22/2023 16:18:53 Influenza, split virus, quadrivalent, PF 5 completed Padmini Stromquist null, [facility] 01/22/2023 16:18:53 Influenza, split virus, quadrivalent, PF 2 completed Padmini Stromquist null, [facility] 01/22/2023 16:18:53 Past Encounters Encounter ID Performer Location Encounter Start Date Encounter Closed Date Diagnosis/Indication Diagnosis SNOMED-CT Code Diagnosis ICD10 Code Diagnosis Note [id number] KAITY REZA_Isabel [address] [address] 10/28/2024 09:25:35 11/04/2024 09:49:12 Malignant neoplasm of prostate [id number] C61 Health Concerns Section Related Observation LastModified by Organization Detai ls LastModified Time None Recorded Concern Status LastModified by Organization Details LastModified Time None Recorded Payers Encounter Date Sequence Insurance Name Policy Number Policy Hayden Covered Member ID Hayden Member ID Guarantor Name 10/28/2024 1 [facility] [id number] Rico Mamadou Morales [id number] Rico Morales Notes Date Note Type Note Provider Name and Address Organization Details Recorded Time 10/28/2024 text/html 64M s/p RALP + PLND on 10/19/24 for pT2N0 Sakshi 4+3=7 prostate cancer (-SMS, -SVI, 0/12 LN). Overall doing well since surgery. He has increased activity to a near normal level. He reports minimal pain and denies leg swelling, problems with incisions, or fevers. Taking cipro as prescribed. BI AGUILA PA-C [address] [place] [address],[address], [place], [address], [facility] 10/28/2024 10:15:07
[2024-11-26 07:51] VITALS: BP 137/101; PULSE 81; RESP 16; TEMP 36.3; O2SAT 96; BMI 32.2
--- NOTE | 2024-11-26 08:02 | CRLHL7_ITS ---
For Patients: As a result of the Century Cures Act, medical imaging exams and procedure reports are released immediately into your electronic medical record. You may view this report before your referring provider. If you have questions, please contact your health care provider. Indication: Right leg pain and swelling Technique: Grayscale, grayscale compression, color Doppler, spectral Doppler and augmentation technique was utilized for evaluating the right lower extremity deep venous system. The left common femoral vein was also study. Comparison: None Findings: The left common femoral vein appears normal. On the right, the common femoral vein, greater saphenous vein, deep femoral vein proximally, femoral vein, popliteal vein, peroneal vein and posterior tibial vein all appear normal. Impression: Normal examination Dictated by Nahun Valerio MD @ 11/26/2024 9:18:06 AM (Electronically Signed)
--- NOTE | 2024-11-26 08:14 | ED.GENADULT ---
HPI - General Adult General Chief complaint: Extremity Pain/Injury, Lower Stated complaint: R ankle swelling, 5 weeks postop Time Seen by Provider: 11/26/24 07:47 History of Present Illness HPI narrative: This 64-year-old male comes in reporting right leg swelling over the last day or so. He does not report any pain or injury event. He did have a prostatectomy about 5 weeks ago and has been doing well since then. He states that he has a Leiden factor 5 gene that he carries but has not had any prior blood clot. He does take a baby aspirin daily. He does not report any chest pain or shortness of breath and arrives here with normal vital signs. Related Data Home Medications ?Medication ?Instructions ?Recorded ?Confirmed aspirin 81 mg tablet,delayed 81 mg PO DAILY 04/27/23 11/26/24 release (Adult Aspirin Regimen) calcium carbonate-vitamin D2 2 tab PO DAILY 04/27/23 11/26/24 famotidine 20 mg tablet 20 mg PO DAILY 04/27/23 11/26/24 rosuvastatin 10 mg tablet 10 mg PO QPM 04/27/23 11/26/24 alendronate 70 mg tablet 70 mg PO .weekly 06/10/23 11/26/24 Previous Rx's ?Medication ?Instructions ?Recorded furosemide 20 mg tablet (Lasix) 20 mg PO DAILY #10 tabs 11/26/24 Allergies Allergy/AdvReac Type Severity Reaction Status Date / Time celecoxib (From Celebrex) Allergy Verified 11/26/24 07:50 Penicillins AdvReac Verified 11/26/24 07:50 Review of Systems Status of ROS: Reports: 10 or more systems reviewed and unremarkable except as noted in History and below Narrative: Constitutional: No fevers, no weight gain or loss. Eyes: No discharge. No vision changes. HENT: No congestion, no sore throat, no ear pain. Cardiovascular: No chest pain, no palpitations. Respiratory: No shortness of breath, no wheezes, no cough. Gastrointestinal: No abdominal pain, no vomiting, no diarrhea. Genitourinary: No dysuria, no hematuria. Musculoskeletal: Normal range of motion. Skin: No rashes, no pruritis. Neurological: No dizziness, weakness, sensory change, speech change. Endo/Heme/Allergies: No bruising or bleeding. No polydipsia. Pysch: no suicidality, no anxiety, no insomnia. All other systems reviewed and are negative. [facility] Medical History (Updated 11/26/24 @ 09:36 by Troy Richard MD) Arthritis of right acromioclavicular joint ?M19.011 - Primary osteoarthritis, right shoulder (ICD-10) Rotator cuff tear, right ?M75.101 - Unspecified rotator cuff tear or rupture of right shoulder, not specified as traumatic (ICD-10) Osteoarthritis of right shoulder ?M19.011 - Primary osteoarthritis, right shoulder (ICD-10) History of glomerulonephritis ?Z87.448 - Personal history of other diseases of urinary system (ICD-10) Surgical History (Updated 06/05/23 @ 12:32 by Mary Jo Maynard) Status post biopsy of kidney ?Z98.890 - Other specified postprocedural states (ICD-10) History of tonsillectomy and adenoidectomy ?Z90.89 - Acquired absence of other organs (ICD-10) History of open reduction and internal fixation (ORIF) procedure (06/26/06) ?Z98.890 - Other specified postprocedural states (ICD-10) History of esophagogastroduodenoscopy (EGD) (07/11/10) ?Z98.890 - Other specified postprocedural states (ICD-10) History of colonoscopy (06/13/10) ?Z98.890 - Other specified postprocedural states (ICD-10) Family History (Updated 06/10/23 @ 08:44 by Miguelina Metzger ~ [facility], [facility]) Father Bleeding disorder Sister Bleeding disorder Social History (Updated 06/10/23 @ 08:44 by Miguelina Metzger ~ [facility], [facility]) Smoking Status: Never smoker Do you use any of these nicotine containing products: None Second hand tobacco smoke exposure: No Exam Narrative: Exam Narrative: Constitutional: Well-developed, well-nourished, no acute distress. HEENT: Normocephalic, atraumatic. Neck: Normal range of motion. Nontender. Supple. Heart: Regular. No murmurs. Normal rate. Intact distal pulses. Lungs: Clear to auscultation. No chest discomfort. No wheezes, rhonchi, or rales. Abdomen: Normal bowel sounds. Nontender. No rebound tenderness. Genitalia: Deferred. Back: No midline tenderness. Normal range of motion. Extremities: Normal range of motion. No injury. Right lower extremity pitting edema extending up above his knee. No skin discoloration. Skin: Intact. No rash. Warm. No erythema or pallor. Neurologic: No altered sensation. No weakness. Alert and oriented. Psychiatric: No suicidality. No anxiety or depression. No insomnia. Nursing notes and vitals signs are reviewed. Const: Vital Signs, click to edit/add: Vital Signs - 24 hr 11/26/24 07:51 11/26/24 09:09 Temperature 97.3 F L Pulse Rate [Pulse Oximeter] 81 75 Respiratory Rate 16 16 Blood Pressure [[facility] Upper Arm] 137/101 H 138/95 H Pulse Oximetry 96 99 Oxygen Delivery Me thod Room Air Room Air Course Vital Signs Vital signs: Initial Vital Signs Temperature 97.3 F L 11/26/24 07:51 Temperature Source Temporal Artery Scan 11/26/24 07:51 Pulse Rate 81 11/26/24 07:51 Respiratory Rate 16 11/26/24 07:51 Blood Pressure 137/101 H 11/26/24 07:51 Blood Pressure Mean 113 H 11/26/24 07:51 Blood Pressure Position Sitting 11/26/24 07:51 Pulse Oximetry 96 11/26/24 07:51 Oxygen Delivery Method Room Air 11/26/24 07:51 Vital Signs Temperature 97.3 F L 11/26/24 07:51 Pulse Rate 81 11/26/24 07:51 Respiratory Rate 16 11/26/24 07:51 Blood Pressure 137/101 H 11/26/24 07:51 Pulse Oximetry 96 11/26/24 07:51 Oxygen Delivery Method Room Air 11/26/24 07:51 Temperature 97.3 F L 11/26/24 07:51 Pulse Rate 75 11/26/24 09:09 Respiratory Rate 16 11/26/24 09:09 Blood Pressure 138/95 H 11/26/24 09:09 Pulse Oximetry 99 11/26/24 09:09 Oxygen Delivery Method Room Air 11/26/24 09:09 Medical Decision Making MDM Narrative Medical decision making narrative: This patient comes in reporting swelling in his right leg. He does not have any injury event or report of pain. He does not have any history of blood clot. An ultrasound is obtained and shows no evidence of venous thrombus. The patient did have a prostatectomy about 5 weeks ago and has been doing well since then. He does state that they did take 3 or 4 lymph nodes in the area because the PET scan had some suspicion of increased metabolic activity. This may be accounting for his retention of fluid in addition to the fact that he has been drinking extra liquids to keep his urinary system working well. The patient does have a follow-up appointment with his urologist in about a week. I did provide a prescription for some tablets of Lasix 20 mg as he does also have some retention of fluid in his left lower extremity. His symptoms may be related to lymphedema secondary to his surgery. Imaging Data Venous US: Radiologist's impression: Normal examination Discharge Plan Discharge Clinical Impression: Edema of lower extremity Patient Disposition: Home, Self-Care Condition: Stable Additional Instructions: Take medication as prescribed. Follow up with follow-up appointment as scheduled. Return if worsening. Prescriptions: New furosemide [Lasix] 20 mg tablet 20 mg PO DAILY Qty: 10 2RF No Action alendronate 70 mg tablet 70 mg PO .weekly famotidine 20 mg tablet 20 mg PO DAILY rosuvastatin 10 mg tablet 10 mg PO QPM calcium carbonate-vitamin D2 [Calcium with Vitamin D] 2 tab PO DAILY aspirin [Adult Aspirin Regimen] 81 mg tablet,delayed release (DR/EC) 81 mg PO DAILY Follow Up/Referrals: Lalo Bass MD [Primary Care Provider, Family Practice] Stand Alone Forms: [employer] Info Instructions
[2024-11-26 09:09] VITALS: BP 138/95; PULSE 75; RESP 16; O2SAT 99
== END 2024-11-26 09:43 | disposition home or self-care (01) ==
PROVIDERS: Emergency Provider Emergency Medicine Emergency Medical Services; PCP Family Medicine
DX: R60.9 Edema, unspecified (principal)
CPT/HCPCS: 93971; 99284

== ENCOUNTER 2024-12-13 15:26 | Outpatient (CLI) | payer OTHER, SELFPAY ==
[2024-12-13 15:55] LABS: Creatinine* 1.1 mg/dL (0.5-1.5); Estimated Glomerular Filt Rate 75 ml/min
--- NOTE | 2024-12-13 16:00 | CRLHL7_ITS ---
For Patients: As a result of the 21st Century Cures Act, medical imaging exams and procedure reports are released immediately into your electronic medical record. You may view this report before your referring provider. If you have questions, please contact your health care provider. INDICATION: LOCALIZED EDEMA, MAINLY RT LEG, NEGATIVE US. (Sic) COMPARISON: None available. TECHNIQUE: CT of the abdomen and pelvis with 120 cc of Isovue 370 intravenous contrast. Please note that all CT scans at this facility use dose modulation, iterative reconstruction, and/or weight-based dosing when appropriate to reduce radiation dose to as low as reasonably achievable. FINDINGS: ABDOMEN Liver: Normal contour and attenuation. No significant focal lesion. No intrahepatic biliary ductal dilatation. Patent portal veins. Patent hepatic veins. Gallbladder: Contracted. No pericholecystic inflammatory changes. Normal common duct caliber. Pancreas: Normal contour and attenuation. No peripancreatic inflammatory changes. No significant focal lesion. Normal main duct caliber. Spleen: Not enlarged. No significant focal lesion. Patent splenic artery and vein. Adrenal Glands: Symmetrical adrenal glands. No significant focal lesion. Kidneys: Normal bilateral renal attenuation. No significant focal lesion. Uncomplicated bilateral renal cortical cysts are noted incidentally. No nephrolith. No dilatation of the intrarenal collecting systems. No ureteral stone. Nondilated ureters. Patent renal arteries and veins. Gastrointestinal tract: Normal caliber, attenuation and wall thickness of the gastrointestinal tract. No inflammatory changes. Vascular: Minimal chronic aortoiliac atherosclerotic mural calcification. Abdominal aorta and its major proximal branches including the celiac, superior mesenteric, inferior mesenteric, renal, and bilateral common iliac arteries are patent. Patent superior mesenteric vein. Peritoneal Cavity/Retroperitoneum: No ascites. No adenopathy. PELVIS Circumscribed homogeneous simple fluid attenuation cystic mass along the right pelvic sidewall measuring approximally 4 cm x 7.9 cm in short and long axis, respectively (series 2; image 126). This lesion abuts the medial margin of the right external iliac vein which is significantly narrowed (see coronal series 4; image 78) but otherwise patent. Heterogeneous enhancement of the right external iliac vein is considered to be due to admixture of opacified and unopacified blood, similar in appearance to the contralateral left external iliac vein. The lesion exerts extrinsic mass effect upon the right anterolateral bladder dome. Site of origin of this lesion is unknown. Location is favored to be extraperitoneal. Associated features include nonspecific fat stranding of the extraperitoneal fat in the region of the internal inguinal canal which could represent lymphedema, for example. Pertinent negative findings include absence of intracystic solid elements or wall thickening. No bladder lesion is identified. No significant incidental findings related to the prostate or seminal vesicles. No significant free fluid. No adenopathy. SKELETON AND BODY WALL No acute or significant incidental findings. Fat bulges into the right external inguinal ring consistent with a small direct hernia (series 2; image 137). Otherwise note is made of a right inguinal canal lipoma/extrusion of extraperitoneal fat. Left dynamic hip screw and partially threaded cannulated screw. Right intramedullary radiolucent finding with calcified matrix consistent with an enchondroma. Multilevel thoracolumbar spondylosis. Transitional lumbosacral anatomy with 6 [id number] lumbar-type vertebra. There is fusion of the left L6 vertebra and sacrum. LOWER THORAX Sliding hiatus hernia with a partially intrathoracic stomach. IMPRESSION: 1. Nonspecific right pelvic sidewall unilocular cystic lesion, favored to be extraperitoneal in location, otherwise of undetermined origin. This lesion exerts extrinsic mass effect upon the right external iliac vein which is markedly narrowed but otherwise patent (see coronal series 4; image 78, for example). The lesion also exhibits a degree of mass effect upon the right anterolateral bladder dome. Surgical referral is recommended for consideration of excision. 2. Incidental findings as above. Please note that all CT scans at this facility use dose modulation, iterative reconstruction, and/or weight-based dosing when appropriate to reduce radiation dose to as low as reasonably achievable. Dictated by Yovanny Anderson MD @ 12/15/2024 2:21:24 PM (Electronically Signed)
== END 2024-12-13 15:27 | disposition home or self-care (01) ==
PROVIDERS: PCP Family Medicine; Visit Provider Urology
DX: R60.0 Localized edema (principal); K44.9 Diaphragmatic hernia without obstruction or gangrene; N32.9 Bladder disorder, unspecified
CPT/HCPCS: 36415; 74177; 82565; Q9967